=== PATIENT | male | born 1985 | race American Indian/Alaskan Native ===

== ENCOUNTER 2017-09-29 15:52 | Inpatient (IN) | payer OTHER ==
--- NOTE | 2017-09-29 16:48 | C.PDOC ---
History Of Present Illness 31 year old male, whose PMHx includes ESRD (on dialysis Wednesday, and Wednesday), presents to the ED for evaluation of generalized fatigue, dry cough, mild shortness of breath and subjective fever (undocumented) which began yesterday. Patient also reports experiencing mild chest discomfort this morning and states he still feels like he has a fever. Patient states his last dialysis session was this past Wednesday. Patient notes he has been eating/drinking normally and producing small amounts of urine. He denies chest pain, abdominal pain, and has no further medical complaints at this time. Patient reports he had history of transient hypertension a few years ago, but currently does not have hypertension or diabetes. Patient is unaware of why his kidneys failed. Additional history obtained from Dr Ashley Mesa, patient is new to their service. He was recently incarcerated and is not always compliant with his dialysis. Time Seen by Provider: 09/29/17 16:25 Chief Complaint (Nursing): Chest Pain History Per: Patient History/Exam Limitations: no limitations Onset/Duration Of Symptoms: Hrs Current Symptoms Are (Timing): Still Present Quality: "Pain" Additional History Per: Patient Past Medical History Reviewed: Historical Data, Nursing Documentation, Vital Signs Vital Signs: Last Vital Signs Temp 98.7 F 09/29/17 15:54 Pulse 81 09/29/17 15:54 Resp 12 09/29/17 16:14 BP 127/75 09/29/17 15:54 Pulse Ox 95 09/29/17 17:11 - Medical History PMH: Asthma, End Stage Renal Disease, Chronic Kidney Disease Surgical History: No Surg Hx Family History: States: Unknown Family Hx - Social History Hx Alcohol Use: No Hx Substance Use: No - Immunization History Hx Tetanus Toxoid Vaccination: No Hx Influenza Vaccination: No Hx Pneumococcal Vaccination: No Review Of Systems Constitutional: Positive for: Fever, Other (generalized fatigue ) Cardiovascular: Positive for: Chest Pain Respiratory: Positive for: Cough, Shortness of Breath. Negative for: Sputum Gastrointestinal: Negative for: Abdominal Pain Physical Exam - Physical Exam Appears: Non-toxic, No Acute Distress Skin: Normal Color, Warm, Dry Head: Atraumatic, Normacephalic Eye(s): bilateral: Normal Inspection Oral Mucosa: Moist Neck: Supple Chest: Symmetrical, No Deformity, No Tenderness Cardiovascular: Rhythm Regular, No Murmur Respiratory: Normal Breath Sounds, No Rales, No Rhonchi, No Wheezing Gastrointestinal/Abdominal: Soft, No Tenderness, No Guarding, No Rebound Extremity: Normal ROM, Capillary Refill (less than 2 seconds ) Neurological/Psych: Oriented x3, Normal Speech, Normal Cognition ED Course And Treatment - Laboratory Results Result Diagrams: 09/29/17 17:07 09/29/17 17:07 Lab Interpretation: Abnormal (Hgb 7.8, Hct 23.9, BUN 107, Cr 18.7) ECG: Interpreted By Me ECG Rhythm: Sinus Rhythm (with LVH) O2 Sat by Pulse Oximetry: 95 (on RA) Pulse Ox Interpretation: Normal - Radiology CXR: Interpreted by Me CXR Interpretation: Yes: Heart Size (enlarged) Progress Note: Bloodwork, urinalysis, CXR, EKG ordered and reviewed. Reevaluation Time: 18:45 Reassessment Condition: Unchanged - Physician Consult Information Time Consulting Physician Contacted: 18:45 Outcome Of Conversation: Discussed with Dr Mesa and Dr West. Patient to be admitted for fluid overload with renal failure. Dialysis will be ordered by DR Mesa. Disposition - Disposition Disposition: HOSPITALIZED Disposition Time: 18:45 Condition: FAIR - POA Present On Arrival: None - Clinical Impression Clinical Impression: ESRD (end stage renal disease) on dialysis, Cardiomegaly - Scribe Statement The provider has reviewed the documentation as recorded by the Scribe (Fiona Huber) Provider Attestation: All medical record entries made by the Scribe were at my direction and personally dictated by me. I have reviewed the chart and agree that the record accurately reflects my personal performance of the history, physical exam, medical decision making, and the department course for this patient. I have also personally directed, reviewed, and agree with the discharge instructions and disposition.
[2017-09-29 17:15] LABS: BASO % 0.3 % (0.0-2.0); EOS # 0.2 K/uL (0.0-0.7); EOS % 3.7 % (0.0-4.0); HEMOGLOBIN 7.8 g/dL (12.0-18.0); LYMPH # 0.7 K/uL (1.0-4.3); LYMPH % 12.6 % (20.0-40.0); MEAN CELL VOLUME 90.2 fL (80.0-94.0); MEAN CORPUSCULAR HEMOGLOBIN 29.6 pg (27.0-31.0); MEAN CORPUSCULAR HGB CONC 32.8 g/dL (33.0-37.0); MEAN PLATELET VOLUME 8.1 fL (7.2-11.7); MONO # 0.3 K/uL (0.0-0.8); MONO % 5.9 % (0.0-10.0); NEUT # 4.1 K/uL (1.8-7.0); NEUT % 77.5 % (50.0-75.0); RBC 2.65 Mil/uL (4.40-5.90); RED CELL DISTRIBUTION WIDTH 13.7 % (11.5-14.5); WHITE BLOOD COUNT 5.4 K/uL (4.8-10.8)
[2017-09-29 17:34] LABS: ALB/GLOB RATIO 1.2 (1.0-2.1); ALBUMIN 3.4 g/dL (3.5-5.0); ALT/SGPT 10 U/L (21-72); AST/SGOT 14 U/L (17-59); CALCIUM 8.1 mg/dl (8.6-10.4)
[2017-09-29 18:00] LABS: GFR AFRICAN-AMERICAN 4; GFR NON-AFRICAN AMERICAN 3
[2017-09-29 21:17] LABS: BLOOD UREA NITROGEN 107 mg/dL (9-20)
[2017-09-29] MEDS ORDERED: Pneumococcal 23-Valent Vaccine IM ONE (22:00)
--- NOTE | 2017-09-30 07:37 | CP.PCM.PN ---
Subjective - Date & Time of Evaluation Date of Evaluation: 09/30/17 Time of Evaluation: 07:30 - Subjective Subjective: PGY-[address] West's Service: Pt seen and examined at bedside. Nursing reports no acute events overnight. Patient states he missed dialysis because "he was busy." Denies chest pain, SOB , or palpitations this AM. 31 year old male, whose PMHx includes ESRD (Wednesday, and Wednesday), presents to the ED for evaluation of generalized fatigue, dry cough, mild shortness of breath and subjective fever which started the day yesterday. Patient also reports experiencing mild chest discomfort this morning and states he still feels like he has a fever. Patient states his last dialysis session was this past Wednesday. Patient notes he has been eating/drinking normally and producing small amounts of urine. He denies chest pain, abdominal pain, and has no further medical complaints at this time. Patient reports he had history of transient hypertension a few years ago, but currently does not have hypertension or diabetes. Has had dialysis for past eight years. He was recently incarcerated and is not always compliant with his dialysis. Objective - Vital Signs/Intake and Output Vital Signs (last 24 hours): Temp Pulse Resp BP Pulse Ox 98.5 F 71 20 135/73 99 09/30/17 00:00 09/30/17 00:00 09/30/17 00:00 09/30/17 00:00 09/30/17 00:00 Intake and Output: 09/30/17 09/30/17 06:59 18:59 Output Total 0 Balance 0 - Medications Medications: Current Medications Calcium Acetate (Phoslo) 2,668 mg PO QID [facility] Cinacalcet (Sensipar) 60 mg PO DAILY [facility] Heparin Sodium (Porcine) (Heparin) 5,000 units SC Q12 [facility] Vitamin B Complex/Vit C/Folic Acid (Nephro-Xenia) 1 tab PO 0800 [facility] - Labs Labs: 09/29/17 17:07 09/29/17 17:07 - Constitutional Appears: Non-toxic, No Acute Distress - Head Exam Head Exam: ATRAUMATIC, NORMAL INSPECTION - Eye Exam Eye Exam: EOMI. absent: Scleral icterus Pupil Exam: PERRL - ENT Exam ENT Exam: Mucous Membranes Dry - Respiratory Exam Respiratory Exam: Clear to Ausculation Bilateral, NORMAL BREATHING PATTERN. absent: Rales, Rhonchi, Wheezes - Cardiovascular Exam Cardiovascular Exam: REGULAR RHYTHM, +S1, +S2 - GI/Abdominal Exam GI & Abdominal Exam: Soft, Normal Bowel Sounds. absent: Tenderness - Extremities Exam Extremities Exam: Pedal Edema (trace) - Back Exam Back Exam: absent: CVA tenderness (L), CVA tenderness (R) - Neurological Exam Neurological Exam: Alert, Awake, Oriented x3 - Psychiatric Exam Psychiatric exam: Normal Affect, Normal Mood - Skin Skin Exam: Normal Color, Warm Assessment and Plan - Assessment and Plan (Free Text) Plan: ESRD (T//WED) Admit to med/surg Dr Bell - nephro specification consultant - HD today CXR (09/29/17): Cardiomegaly. Mild pulm venous congestion. Cincalet 60mg PO daily Phoslo 2668 PO TIDCC Nephro-xenia 1 tab Daily HTN Admits being told he has high BP in the past but denies home meds EKG (09/30/17): NSR, LVH, No acute ST/T wave changes Monitor Chest pain associated with cough Afebrile, No WBC CXR (09/29/17): Cardiomegaly. Mild pulm venous congestion. Trop negative x 1 EKG: no acute changes Thrombocytopenia Plt 109 Pt missed dialysis, perhaps uremia Monitor Anemia of Chronic disease Hgb 7.8, HCT 23.9 Procrit 10k unit IV TTS - will monitor AM labs; transfusion if < 8 Hx of neurogenic bladder Now anuric Prophylaxis Heparin 5000u Q12H SCDs GI ppx not indicated Humble Duran PGY-2 All medical management per Dr. West
--- NOTE | 2017-09-30 08:20 | RAD ---
HISTORY: COMPARISON: No prior. TECHNIQUE: Chest PA and lateral FINDINGS: LINES AND TUBES: None. LUNG AND PLEURA: The lungs are well lungs are well inflated. There is moderate pulmonary venous congestion HEART AND MEDIASTINUM: There is mild cardiomegaly. The hilar and mediastinal contours are within normal limits. SKELETAL STRUCTURES: The bony structures are within normal limits for the patient's age. VISUALIZED UPPER ABDOMEN: Normal. OTHER FINDINGS: None. IMPRESSION: Moderate pulmonary venous congestion and mild cardiomegaly. No active pulmonary disease.
[2017-09-30] MEDS: Multivitamin Vitamin B Complex (Nephro-Vite) Tab PO SCH (08:22)
--- NOTE | 2017-09-30 14:43 | CP.PCM.CON ---
History of Present Illness - History of Present Illness History of Present Illness: Initial Nephrology Consultation: Assessment: Stable Pulmonary congestion and fluid overload End stage renal disease (N18.6) dependence on hemodialysis (Z99.2) (TTS) via AVF Anemia (D64.9), Hyperphosphatemia (E83.39), Secondary Hyperparathyroidism (E21.1 ), HTN (I12.0) hx of VATER syndrome Plan: Will plan for HD today as ordered. Continue with Nephrovite 1 tab/day. PRBC as needed for anemia. On LATASHA as epogen with HD, last Hb 7.8 Continue with phos binders home dose, check phos level Continue with sensipar BP controlled without meds as ordered. Glycemic control, Dialysis consistent diet Further work up/management as per primary team Dose meds/antibiotics (if needed) for ESRD status. Avoid fleets enema/magnesium based laxatives. Thanks for allowing me to participate in care of your patient. Will follow patient with you. Please call if any Qs Dr Son Carrillo Office: [phone] Chief Complaint;excess fluid HPI: Pt is a 31 M with hx of ESRD on hemodialysis (TTS) via AVF, last dialysis , chronic anemia, hyperphosphatemia, secondary hyperparathyroidism, VATER syndrome presented with complaints of chest pain, cough and congestion. renal consult for ESRD management he feels excess fluid and c/o leg swelling. he is anuric now. reports mild SOB. 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 reports chronic neurogenic bladder which he was managing with self catheterization. he had CKD and started hemodialysis 6 years ago. nowadays anuric ROS: Cardiovascular: No chest pain. Pulmonary: c/o shortness of breath Gastrointestinal: denies abdominal pain No nausea. No vomiting. Genitourinary: anuric All other negative except as mentioned in HPI Physical Examination: General Appearance: Comfortable, in no acute respiratory distress, co-operative . Vitals reviewed and noted as below Head; Atraumatic, normocephalic ENT: no ulcers no thrush. Tongue is midline. Oropharynx: no rash or ulcers. facial puffiness notes EYES: Pupils are equal, round and reactive to light accommodation. Eye muscles and extraocular movement intact. Sclera is anicteric. Neck; supple no lymphadenopathy, no thyromegaly or bruit Lungs: Normal respiratory rate/effort. Breath sounds bilateral equal and clear Heart: Normal rate. s1s2 normal. No rub or gallop. Extremities: trace edema. No varicose veins Neurological: Patient is alert, awake and oriented to person, place and time. No focal deficit. Strength bilateral appropriate and equal Skin: Warm and dry. Normal turgor. No rash. Palpitation: Normal elasticity for age Abdomen: Abdomen is soft. Bowel sounds +. There is no abdominal tenderness, no guarding/rigidity or organomegaly. has RLQ colostomy Psych: normal insight and normal affect/mood MSK: no joint tenderness or swelling. Digits and nails normal, no deformity : kidney or bladder not palpable Access: left AVF Labs/imaging reviewed. Past medical history, past surgical history, family history, social history, allergy reviewed and noted as below Family Hx: no hx of CKD. Non contributory Past Patient History - Past Medical History & Family History Past Medical History?: Yes - Past Social History Smoking Status: Heavy Smoker > 10 Cigarettes Daily - CARDIAC Hx Hypertension: Yes - PULMONARY Hx Asthma: Yes - NEUROLOGICAL Other/Comment: neuro genic bladder - RENAL Hx Chronic Kidney Disease: Yes Hx Dialysis: Yes Date of Last Dialysis Treatment: 09/25/17 - MUSCULOSKELETAL/RHEUMATOLOGICAL Hx Falls: No - PSYCHIATRIC Hx Substance Use: No Meds Allergies/Adverse Reactions: Allergies Allergy/AdvReac Type Severity Reaction Status Date / Time latex Allergy Verified 09/29/17 16:02 monoxidill Allergy Uncoded 09/29/17 16:02 - Medications Medications: Current Medications Calcium Acetate (Phoslo) 2,668 mg PO TIDCC [facility] Cinacalcet (Sensipar) 60 mg PO DAILY [facility] Last Admin: 09/30/17 09:18 Dose: 60 mg Epoetin Darius (Procrit) 10,000 unit IV TTS [facility] Heparin Sodium (Porcine) (Heparin) 5,000 units SC Q12 [facility] Last Admin: 09/30/17 09:18 Dose: Not Given Heparin Sodium (Porcine) (Heparin) 2,000 units IVP TTS [facility] Vitamin B Complex/Vit C/Folic Acid (Nephro-Radha) 1 tab PO 0800 [facility] Last Admin: 09/30/17 08:22 Dose: 1 tab Results - Vital Signs Recent Vital Signs: Last Vital Signs Temp 98.4 F 09/30/17 07:55 Pulse 79 09/30/17 07:55 Resp 20 09/30/17 07:55 BP 140/83 09/30/17 07:55 Pulse Ox 95 09/30/17 07:55 - Labs Result Diagrams: 09/29/17 17:07 09/29/17 17:07 Labs: Laboratory Results - last 24 hr 09/29/17 09/29/17 17:07 17:07 WBC 5.4 RBC 2.65 L Hgb 7.8 L Hct 23.9 L MCV 90.2 MCH 29.6 MCHC 32.8 L RDW 13.7 Plt Count 109 L MPV 8.1 Neut % (Auto) 77.5 H Lymph % (Auto) 12.6 L [place] % (Auto) 5.9 Eos % (Auto) 3.7 Baso % (Auto) 0.3 Neut # (Auto) 4.1 Lymph # (Auto) 0.7 L [place] # (Auto) 0.3 Eos # (Auto) 0.2 Baso # (Auto) 0.0 Differential Comment Sodium 145 Potassium 5.2 Chloride 98 Carbon Dioxide 27 Anion Gap 25 H BUN 107 H* Creatinine 18.7 H* Est GFR ( Amer) 4 Est GFR (Non-Af Amer) 3 Random Glucose 110 Calcium 8.1 L Total Bilirubin 0.6 AST 14 L ALT 10 L Alkaline Phosphatase 233 H Troponin I < 0.0120 Total Protein 6.3 Albumin 3.4 L Globulin 2.9 Albumin/Globulin Ratio 1.2
[2017-09-30] MEDS: Epoetin Alfa 10,000 unit/ml Dialysis IV SCH (17:32)
[2017-09-30] MEDS ORDERED: oxyCODONE 5 mg Immediate Release Tab PO ONE (20:30)
--- NOTE | 2017-10-01 06:30 | HP ---
HISTORY OF PRESENT ILLNESS: Mr. Montemayor 31 year-old was admitted to the hospital with chief complaints of weakness, fatigue, tiredness. History of shortness of breath. The patient renal failure, . The patient came to the ER, was advised admission. PHYSICAL EXAMINATION: GENERAL: The patient is awake, alert, and oriented. VITAL SIGNS: Temperature 98, pulse 90. HEENT: Within normal limits. NECK: Supple. CHEST: Symmetrical. HEART: Regular. ABDOMEN: Soft. EXTREMITIES: No edema. IMPRESSION: The patient suffers from , bed rest, supportive care. Chitra West MD
[2017-10-01 06:37] LABS: ALB/GLOB RATIO 1.1 (1.0-2.1); ALBUMIN 3.3 g/dL (3.5-5.0); CALCIUM 8.1 mg/dl (8.6-10.4)
[2017-10-01] MEDS: Multivitamin Vitamin B Complex (Nephro-Vite) Tab PO SCH (08:43)
--- NOTE | 2017-10-01 09:15 | CP.PCM.PN ---
Subjective - Date & Time of Evaluation Date of Evaluation: 10/01/17 Time of Evaluation: 10:52 - Subjective Subjective: PGY 2 Medicine Progress Note- Dr. West's service Patient seen and examined. Patient admits to feeling short of breath at this time. He had hemodialysis today. He denies chest pain, nausea or vomiting at this time. Objective - Vital Signs/Intake and Output Vital Signs (last 24 hours): Temp Pulse Resp BP Pulse Ox 98.8 F 86 20 140/85 95 10/01/17 07:34 10/01/17 07:34 10/01/17 07:34 10/01/17 07:34 10/01/17 07:34 Intake and Output: 10/01/17 10/01/17 06:59 18:59 Intake Total 200 Balance 200 - Medications Medications: Current Medications Calcium Acetate (Phoslo) 2,668 mg PO TIDCC [facility] Last Admin: 10/01/17 08:44 Dose: 2,668 mg Cinacalcet (Sensipar) 60 mg PO DAILY [facility] Last Admin: 09/30/17 09:18 Dose: 60 mg Epoetin Darius (Procrit) 10,000 unit IV TTS [facility] Last Admin: 09/30/17 17:32 Dose: 10,000 unit Heparin Sodium (Porcine) (Heparin) 5,000 units SC Q12 [facility] Last Admin: 09/30/17 21:19 Dose: Not Given Heparin Sodium (Porcine) (Heparin) 2,000 units IVP TTS [facility] Last Admin: 09/30/17 17:32 Dose: Not Given Vitamin B Complex/Vit C/Folic Acid (Nephro-Xenia) 1 tab PO 0800 [facility] Last Admin: 10/01/17 08:43 Dose: 1 tab - Labs Labs: 09/29/17 17:07 10/01/17 06:15 - Constitutional Appears: Non-toxic, No Acute Distress - Eye Exam Eye Exam: EOMI, Normal appearance, PERRL Pupil Exam: NORMAL ACCOMODATION - ENT Exam ENT Exam: Mucous Membranes Moist - Respiratory Exam Respiratory Exam: NORMAL BREATHING PATTERN - Cardiovascular Exam Cardiovascular Exam: +S1, +S2 - Extremities Exam Extremities Exam: Full ROM - Neurological Exam Neurological Exam: Alert, Awake, Oriented x3 - Psychiatric Exam Psychiatric exam: Normal Affect, Normal Mood - Skin Skin Exam: Normal Color, Warm Assessment and Plan - Assessment and Plan (Free Text) Assessment: ESRD (T//WED) Dr Bell - nephro home sales consultant- F/U recommendations FEels short of breath today- would benefit from additional HD. Then resume normal schedule CXR (09/29/17): Cardiomegaly. Mild pulm venous congestion. Cincalcet 60mg PO daily Phoslo 2668 PO TIDCC Nephro-xenia 1 tab Daily HTN Admits being told he has high BP in the past but denies home meds EKG (09/30/17): NSR, LVH, No acute ST/T wave changes Monitor Chest pain associated with cough Afebrile, No WBC CXR (09/29/17): Cardiomegaly. Mild pulm venous congestion. Trop negative x 1 EKG: no acute changes Thrombocytopenia Monitor Anemia of Chronic disease Likely due to ESRD Procrit 10k unit IV TTS Monitor AM labs; transfuse PRBC if Hgb is not within normal parameters Hx of VATER syndrome Patient with chronic neurogenic bladder Patient self- catheterizes at home Prophylaxis Heparin 5000u Q12H SCDs GI ppx not indicated Dispo: DC following HD session Wednesday. Discussed with attending. Management and planning per Dr. West.
--- NOTE | 2017-10-01 12:14 | CP.PCM.PN ---
Subjective - Date & Time of Evaluation Date of Evaluation: 10/01/17 Time of Evaluation: 12:11 - Subjective Subjective: Nephrology Consultation Note: Assessment: Stable Pulmonary congestion and fluid overload End stage renal disease (N18.6) dependence on hemodialysis (Z99.2) (TTS) via AVF Anemia (D64.9), Hyperphosphatemia (E83.39), Secondary Hyperparathyroidism (E21.1 ), HTN (I12.0) hx of VATER syndrome Plan: Will plan for HD today extra session and tomorrow TTS as ordered. Continue with Nephrovite 1 tab/day. PRBC as needed for anemia. On LATASHA as epogen with HD, last Hb 7.8 Continue with phos binders home dose, last phos level 5.1 Continue with sensipar BP controlled without meds as ordered. Glycemic control, Dialysis consistent diet Further work up/management as per primary team Dose meds/antibiotics (if needed) for ESRD status. Avoid fleets enema/magnesium based laxatives. Thanks for allowing me to participate in care of your patient. Will follow patient with you. Please call if any Qs. d/w team Dr Son Carrillo Office: [phone] Chief Complaint;excess fluid HPI: Pt is a 31 M with hx of ESRD on hemodialysis (TTS) via AVF, last dialysis , chronic anemia, hyperphosphatemia, secondary hyperparathyroidism, VATER syndrome presented with complaints of chest pain, cough and congestion. renal consult for ESRD management he feels excess fluid and c/o leg swelling. he is anuric now. reports mild SOB. 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 reports chronic neurogenic bladder which he was managing with self catheterization. he had CKD and started hemodialysis 6 years ago. nowadays anuric ROS: Cardiovascular: No chest pain. Pulmonary: c/o shortness of breath Gastrointestinal: denies abdominal pain No nausea. No vomiting. Genitourinary: anuric All other negative except as mentioned in HPI Physical Examination: General Appearance: Comfortable, in no acute respiratory distress, co-operative . Vitals reviewed and noted as below Head; Atraumatic, normocephalic ENT: no ulcers no thrush. Tongue is midline. Oropharynx: no rash or ulcers. facial puffiness notes EYES: Pupils are equal, round and reactive to light accommodation. Eye muscles and extraocular movement intact. Sclera is anicteric. Neck; supple no lymphadenopathy, no thyromegaly or bruit Lungs: Normal respiratory rate/effort. Breath sounds bilateral equal and clear Heart: Normal rate. s1s2 normal. No rub or gallop. Extremities: no edema. No varicose veins Neurological: Patient is alert, awake and oriented to person, place and time. No focal deficit. Strength bilateral appropriate and equal Skin: Warm and dry. Normal turgor. No rash. Palpitation: Normal elasticity for age Abdomen: Abdomen is soft. Bowel sounds +. There is no abdominal tenderness, no guarding/rigidity or organomegaly. has RLQ colostomy Psych: normal insight and normal affect/mood MSK: no joint tenderness or swelling. Digits and nails normal, no deformity : kidney or bladder not palpable Access: left AVF Labs/imaging reviewed. Past medical history, past surgical history, family history, social history, allergy reviewed and noted as below Family Hx: no hx of CKD. Non contributory Objective - Vital Signs/Intake and Output Vital Signs (last 24 hours): Temp Pulse Resp BP Pulse Ox 98.8 F 86 20 140/85 95 10/01/17 07:34 10/01/17 07:34 10/01/17 07:34 10/01/17 07:34 10/01/17 07:34 Intake and Output: 10/01/17 10/01/17 06:59 18:59 Intake Total 200 Balance 200 - Medications Medications: Current Medications Calcium Acetate (Phoslo) 2,668 mg PO TIDCC [facility] Last Admin: 10/01/17 12:09 Dose: 2,668 mg Cinacalcet (Sensipar) 60 mg PO DAILY [facility] Last Admin: 10/01/17 10:32 Dose: 60 mg Epoetin Darius (Procrit) 10,000 unit IV TTS [facility] Last Admin: 09/30/17 17:32 Dose: 10,000 unit Heparin Sodium (Porcine) (Heparin) 5,000 units SC Q12 [facility] Last Admin: 10/01/17 10:37 Dose: Not Given Heparin Sodium (Porcine) (Heparin) 2,000 units IVP TTS [facility] Last Admin: 09/30/17 17:32 Dose: Not Given Vitamin B Complex/Vit C/Folic Acid (Nephro-Radha) 1 tab PO 0800 [facility] Last Admin: 10/01/17 08:43 Dose: 1 tab - Labs Labs: 09/29/17 17:07 10/01/17 06:15
--- NOTE | 2017-10-01 13:21 | CARD ---
APPROVED REPORT EKG Measurement Heart [id number] <Conclusion> Normal sinus rhythm Minimal voltage criteria for LVH, may be normal variant Prolonged QT Abnormal ECG
[2017-10-01 15:14] LABS: BASO % 0.8 % (0.0-2.0); EOS # 0.1 K/uL (0.0-0.7); EOS % 2.7 % (0.0-4.0); HEMOGLOBIN 7.9 g/dL (12.0-18.0); LYMPH # 0.4 K/uL (1.0-4.3); LYMPH % 13.2 % (20.0-40.0); MEAN CELL VOLUME 88.9 fL (80.0-94.0); MEAN CORPUSCULAR HEMOGLOBIN 29.9 pg (27.0-31.0); MEAN CORPUSCULAR HGB CONC 33.7 g/dL (33.0-37.0); MEAN PLATELET VOLUME 8.4 fL (7.2-11.7); MONO # 0.2 K/uL (0.0-0.8); MONO % 6.3 % (0.0-10.0); NEUT # 2.5 K/uL (1.8-7.0); RBC 2.65 Mil/uL (4.40-5.90); RED CELL DISTRIBUTION WIDTH 13.1 % (11.5-14.5); WHITE BLOOD COUNT 3.3 K/uL (4.8-10.8)
[2017-10-02] MEDS: Multivitamin Vitamin B Complex (Nephro-Vite) Tab PO SCH (08:43)
[2017-10-02 15:24] VITALS: RESP 18; O2SAT 97
[2017-10-02] MEDS: Epoetin Alfa 10,000 unit/ml Dialysis IV SCH (17:14)
[2017-10-02 18:48] VITALS: BP 136/90; PULSE 71; TEMP 98.2
--- NOTE | 2017-10-02 22:38 | CP.PCM.PN ---
Subjective - Date & Time of Evaluation Date of Evaluation: 10/02/17 Time of Evaluation: 14:00 - Subjective Subjective: renal follow up note Assessment: Stable Pulmonary congestion and fluid overload End stage renal disease (N18.6) dependence on hemodialysis (Z99.2) (TTS) via AVF Anemia (D64.9), Hyperphosphatemia (E83.39), Secondary Hyperparathyroidism (E21.1 ), HTN (I12.0) hx of VATER syndrome Plan: Will plan for HD today TTS as ordered. Continue with Nephrovite 1 tab/day. PRBC as needed for anemia. On LATASHA as epogen with HD Continue with phos binders and sensipar at home dose BP controlled Glycemic control, Dialysis consistent diet Further work up/management as per primary team Dose meds/antibiotics (if needed) for ESRD status. Physical Examination: General Appearance: Comfortable, in no acute respiratory distress, co-operative . Vitals reviewed and noted as below Head; Atraumatic, normocephalic ENT: no ulcers Oropharynx: no rash or ulcers. facial puffiness notes EYES: Eye muscles and extraocular movement intact. Sclera is anicteric. Neck; supple no lymphadenopathy, no thyromegaly or bruit Lungs: Normal respiratory rate/effort. Breath sounds bilateral equal and clear Heart: Normal rate. s1s2 normal. No rub or gallop. Extremities: no edema. No varicose veins Neurological: Patient is alert, awake and oriented to person, place and time. No focal deficit. Strength bilateral appropriate and equal Skin: Warm and dry. Normal turgor. No rash. Palpitation: Normal elasticity for age Abdomen: Abdomen is soft. Bowel sounds +. There is no abdominal tenderness, no guarding/rigidity or organomegaly. has RLQ colostomy Psych: normal insight and normal affect/mood MSK: no joint tenderness or swelling. Digits and nails normal, no deformity : kidney or bladder not palpable Objective - Vital Signs/Intake and Output Vital Signs (last 24 hours): Temp Pulse Resp BP Pulse Ox 98.2 F 71 18 136/90 97 10/02/17 18:30 10/02/17 18:30 10/02/17 18:30 10/02/17 18:30 10/02/17 14:55 Intake and Output: 10/02/17 10/03/17 18:59 06:59 Intake Total 720 Balance 720 - Labs Labs: 10/01/17 15:07 10/01/17 06:15
== END 2017-10-02 20:00 | disposition home or self-care (01) | DRG 296 ==
LOC: C.ER 15:52 → C.9E 18:46 → C.3T 19:24
PROVIDERS: ADMIT Internal Medicine Pulmonary Disease; ATTEND Internal Medicine Pulmonary Disease
PROC: 5A1D70Z Performance of Urinary Filtration, Intermittent, Less than 6 Hours Per Day (ICD-10-PCS; principal; 2017-09-30)
PROC: 5A1D70Z Performance of Urinary Filtration, Intermittent, Less than 6 Hours Per Day (ICD-10-PCS; 2017-10-01)
PROC: 5A1D70Z Performance of Urinary Filtration, Intermittent, Less than 6 Hours Per Day (ICD-10-PCS; 2017-10-02)
DX: E87.70 Fluid overload, unspecified (principal); I13.11 Hypertensive heart and chronic kidney disease without heart failure, with stage 5 chronic kidney disease, or end stage renal disease; N18.6 End stage renal disease; D69.6 Thrombocytopenia, unspecified; I51.7 Cardiomegaly; E83.39 Other disorders of phosphorus metabolism; D63.8 Anemia in other chronic diseases classified elsewhere; N31.9 Neuromuscular dysfunction of bladder, unspecified; J45.909 Unspecified asthma, uncomplicated; N25.81 Secondary hyperparathyroidism of renal origin; R50.9 Fever, unspecified; R05 Cough; F17.210 Nicotine dependence, cigarettes, uncomplicated; Z91.15 Patient's noncompliance with renal dialysis; Z99.2 Dependence on renal dialysis; Z93.3 Colostomy status

== ENCOUNTER 2018-08-11 15:42 | Observation (INO) | payer OTHER ==
[2018-08-11 15:58] VITALS: BMI 19.1
[2018-08-11] MEDS ORDERED: Aspirin 325 mg EC Tablets PO STA (16:03)
[2018-08-11 16:42] LABS: BASO # 0.1 K/uL (0.0-0.2); EOS # 0.2 K/uL (0.0-0.7); EOS % 1.7 % (0.0-4.0); HEMOGLOBIN 11.8 g/dL (12.0-18.0); LYMPH # 0.7 K/uL (1.0-4.3); LYMPH % 7.8 % (20.0-40.0); MEAN CORPUSCULAR HEMOGLOBIN 28.9 pg (27.0-31.0); MEAN CORPUSCULAR HGB CONC 32.1 g/dL (33.0-37.0); MEAN PLATELET VOLUME 7.4 fL (7.2-11.7); MONO # 0.5 K/uL (0.0-0.8); NEUT # 8.1 K/uL (1.8-7.0); NEUT % 84.5 % (50.0-75.0); PLATELET COUNT 158 K/uL (130-400); RBC 4.09 Mil/uL (4.40-5.90); RED CELL DISTRIBUTION WIDTH 15.9 % (11.5-14.5); WHITE BLOOD COUNT 9.6 K/uL (4.8-10.8)
--- NOTE | 2018-08-11 16:42 | RAD ---
HISTORY: chest pain COMPARISON: Chest x-ray performed 09/29/17 TECHNIQUE: Chest, one view. FINDINGS: Examination limited by habitus and patient obliquity. LUNGS: Patchy left lower lobe opacities consistent with pneumonia. Linear atelectasis, right lung base. PLEURA: No significant pleural effusion identified. No definite pneumothorax . CARDIOVASCULAR: Cardiomegaly. Ectatic aorta likely exaggerated by patient obliquity. OSSEOUS STRUCTURES: No acute osseous abnormality identified. VISUALIZED UPPER ABDOMEN: Unremarkable. OTHER FINDINGS: None. IMPRESSION: Patchy left lower lobe pneumonia. Linear atelectasis, right lung base. Correlate clinically. Cardiomegaly. Ectatic aorta, likely exaggerated by patient obliquity.
[2018-08-11 16:54] LABS: PROTHROMBIN TIME 11.2 SECONDS (9.7-12.2)
[2018-08-11 17:10] LABS: TROPONIN I 0.03 ng/mL (0.00-0.120)
[2018-08-11 17:19] LABS: ALB/GLOB RATIO 1.6 (1.0-2.1); ALBUMIN 4.4 g/dL (3.5-5.0)
--- NOTE | 2018-08-11 17:40 | C.PDOC ---
Time Seen by Provider: 08/11/18 15:53 Chief Complaint (Nursing): Chest Pain Past Medical History Vital Signs: Last Vital Signs Temp Pulse 104 H 08/11/18 17:11 Resp 20 08/11/18 17:11 BP 174/112 H 08/11/18 17:11 Pulse Ox 94 L 08/11/18 17:11 - Medical History PMH: Asthma, HTN, End Stage Renal Disease, Chronic Kidney Disease - [facility] (09/29/17) Family History: States: Unknown Family Hx - Social History Hx Alcohol Use: No Hx Substance Use: No - Immunization History Hx Tetanus Toxoid Vaccination: Yes Hx Influenza Vaccination: Yes Hx Pneumococcal Vaccination: Yes ED Course And Treatment - Laboratory Results Result Diagrams: 08/11/18 16:39 08/11/18 16:39 Lab Results: PT 11.2 SECONDS (9.7-12.2) 08/11/18 16:39 INR 1.0 08/11/18 16:39 APTT 35 SECONDS (21-34) H 08/11/18 16:39 Troponin I 0.0300 ng/mL (0.00-0.120) 08/11/18 16:39 Total Bilirubin 1.0 mg/dL (0.2-1.3) 08/11/18 16:39 AST 130 U/L (17-59) H D 08/11/18 16:39 ALT 53 U/L (21-72) 08/11/18 16:39 Alkaline Phosphatase 120 U/L (38-126) 08/11/18 16:39 Total Protein 7.2 g/dL (6.3-8.3) 08/11/18 16:39 Albumin 4.4 g/dL (3.5-5.0) 08/11/18 16:39 Globulin 2.8 gm/dL (2.2-3.9) 08/11/18 16:39 Albumin/Globulin Ratio 1.6 (1.0-2.1) 08/11/18 16:39 O2 Sat by Pulse Oximetry: 94 Disposition Discussed With : Tatianna Brunner Counseled Patient/Family Regarding: Studies Performed, Diagnosis - Disposition Disposition: HOSPITALIZED Disposition Time: 17:40 Condition: FAIR Forms: [facility] (Kyrgyz) - Clinical Impression Clinical Impression: Chest pain, ESRD (end stage renal disease)
--- NOTE | 2018-08-11 17:42 | C.PDOC ---
History Of Present Illness 32 y/o male,w/PMhx of ESRD, brought to ER by ambulance for evaluation of chest pain and shortness of breath which began in the morning today. Patient states that the pain is located in the center of the chest and the pain is non-radi ating. Patient reports that he is due for dialysis today. Time Seen by Provider: 08/11/18 15:53 Chief Complaint (Nursing): Chest Pain History Per: Patient History/Exam Limitations: no limitations Onset/Duration Of Symptoms: Hrs Current Symptoms Are (Timing): Still Present Severity: Moderate Past Medical History Reviewed: Historical Data, Nursing Documentation, Vital Signs Vital Signs: Last Vital Signs Temp Pulse 104 H 08/11/18 17:11 Resp 20 08/11/18 17:11 BP 174/112 H 08/11/18 17:11 Pulse Ox 94 L 08/11/18 17:11 - Medical History PMH: Asthma, HTN, End Stage Renal Disease, Chronic Kidney Disease Surgical History: No Surg Hx - [facility] (09/29/17) Family History: States: Unknown Family Hx - Social History Hx Alcohol Use: No Hx Substance Use: No - Immunization History Hx Tetanus Toxoid Vaccination: Yes Hx Influenza Vaccination: Yes Hx Pneumococcal Vaccination: Yes Review Of Systems Except As Marked, All Systems Reviewed And Found Negative. Constitutional: Negative for: Fever, Chills Cardiovascular: Positive for: Chest Pain Respiratory: Positive for: Shortness of Breath Gastrointestinal: Negative for: Nausea, Vomiting Physical Exam - Physical Exam Appears: Non-toxic, No Acute Distress Skin: Normal Color, Warm, Dry Head: Atraumatic, Normacephalic Eye(s): bilateral: Normal Inspection Nose: Normal Oral Mucosa: Moist Neck: Supple Chest: Symmetrical Cardiovascular: Rhythm Regular, Murmur (2/6 systolic ejection murmur) Respiratory: Normal Breath Sounds, No Rales, No Rhonchi, No Wheezing Gastrointestinal/Abdominal: Normal Exam, Soft, No Tenderness, No Guarding, No Rebound Extremity: Normal ROM, Other (AV fistula with thrill to left arm) Neurological/Psych: Oriented x3, Normal Speech ED Course And Treatment - Laboratory Results Result Diagrams: 08/11/18 16:39 08/11/18 16:39 Lab Results: PT 11.2 SECONDS (9.7-12.2) 08/11/18 16:39 INR 1.0 08/11/18 16:39 APTT 35 SECONDS (21-34) H 08/11/18 16:39 Troponin I 0.0300 ng/mL (0.00-0.120) 08/11/18 16:39 Total Bilirubin 1.0 mg/dL (0.2-1.3) 08/11/18 16:39 AST 130 U/L (17-59) H D 08/11/18 16:39 ALT 53 U/L (21-72) 08/11/18 16:39 Alkaline Phosphatase 120 U/L (38-126) 08/11/18 16:39 Total Protein 7.2 g/dL (6.3-8.3) 08/11/18 16:39 Albumin 4.4 g/dL (3.5-5.0) 08/11/18 16:39 Globulin 2.8 gm/dL (2.2-3.9) 08/11/18 16:39 Albumin/Globulin Ratio 1.6 (1.0-2.1) 08/11/18 16:39 ECG: Interpreted By Me, Viewed By Me ECG Rhythm: Sinus Tachycardia Interpretation Of ECG: Sinus Tachycardia with normal intervals, normal axises, and no ST/T wave abnormalities Rate From EC O2 Sat by Pulse Oximetry: 94 (RA) Pulse Ox Interpretation: Normal Medical Decision Making Medical Decision Making: Plan: --Labs --CXR --Aspirin PO --Nitroglycerin SL Updates: 18:40 Case discussed with , last puller covering for . Disposition Discussed With DrOsvaldo: Tatianna Brunner Counseled Patient/Family Regarding: Studies Performed, Diagnosis - Disposition Disposition: HOSPITALIZED Disposition Time: 17:40 Condition: FAIR - Clinical Impression Clinical Impression: Chest pain, ESRD (end stage renal disease) - Scribe Statement The provider has reviewed the documentation as recorded by the Kierra Pinzon Provider Attestation: All medical record entries made by the Melonyibe were at my direction and personally dictated by me. I have reviewed the chart and agree that the record accurately reflects my personal performance of the history, physical exam, medical decision making, and the department course for this patient. I have also personally directed, reviewed, and agree with the discharge instructions and disposition.
[2018-08-11] MEDS ORDERED: Azithromycin 500 MG in Sodium Chloride 0.9% 250 ML IVPB STA (18:39)
[2018-08-11 18:50] LABS: EOSINOPHIL 1 % (0-4); LYMPHOCYTE 6 % (20-40); MONOCYTE 3 % (0-10); NEUTROPHIL 89 % (50-75); PLATELET ESTIMATE NORMAL (NORMAL); REACTIVE LYMPHOCYTES 1 % (0-0); TOTAL CELLS COUNTED 100
--- NOTE | 2018-08-11 19:43 | CP.PCM.HP ---
History of Present Illness - History of Present Illness History of Present Illness: 32 y/o male,w/PMhx of ESRD, brought to ER by ambulance for evaluation of chest pain and shortness of breath which began in the morning today. Patient states that the pain is located in the center of the chest and the pain is non-radiat ing. Patient reports that he is due for dialysis today. CXR REPORTED LLL PNEUMONIA Present on Admission - Present on Admission Any Indicators Present on Admission: No Review of Systems - Review of Systems All systems: reviewed and no additional remarkable complaints except (generalized weakness and atypical chest pain) Past Patient History - Past Medical History & Family History Past Medical History?: Yes - Past Social History Smoking Status: Heavy Smoker > 10 Cigarettes Daily - CARDIAC Hx Hypertension: Yes - PULMONARY Hx Asthma: Yes - NEUROLOGICAL Other/Comment: neuro genic bladder - RENAL Hx Chronic Kidney Disease: Yes - MUSCULOSKELETAL/RHEUMATOLOGICAL Hx Falls: No - PSYCHIATRIC Hx Substance Use: No - SURGICAL HISTORY Other/Comment: abdominal sx, colostomy R abdomen, A/V fistula - ANESTHESIA Hx Anesthesia: Yes Hx Anesthesia Reactions: No Meds Allergies/Adverse Reactions: Allergies Allergy/AdvReac Type Severity Reaction Status Date / Time codeine Allergy Verified 08/11/18 15:57 latex Allergy Verified 08/11/18 15:57 monoxidill Allergy Uncoded 08/11/18 15:57 Physical Exam - Head Exam Head Exam: ATRAUMATIC, NORMAL INSPECTION, NORMOCEPHALIC - Eye Exam Eye Exam: EOMI, Normal appearance, PERRL - ENT Exam ENT Exam: Mucous Membranes Moist, Normal Exam - Neck Exam Neck exam: Positive for: Normal Inspection - Respiratory Exam Respiratory Exam: Clear to Auscultation Bilateral, NORMAL BREATHING PATTERN - Cardiovascular Exam Cardiovascular Exam: +S1, +S2, +S4, Systolic Murmur - GI/Abdominal Exam GI & Abdominal Exam: Normal Bowel Sounds, Soft. absent: Tenderness - Extremities Exam Extremities exam: Positive for: full ROM (left arm AV shunt) Results - Vital Signs Recent Vital Signs: Last Vital Signs Temp Pulse 106 H 08/11/18 19:22 Resp 20 08/11/18 19:22 BP 169/116 H 08/11/18 19:22 Pulse Ox 99 08/11/18 19:22 - Labs Result Diagrams: 08/11/18 16:39 08/11/18 16:39 Labs: Laboratory Results - last 24 hr 08/11/18 08/11/18 08/11/18 16:39 16:39 16:39 WBC 9.6 D RBC 4.09 L Hgb 11.8 L D Hct 36.8 MCV 90.0 MCH 28.9 MCHC 32.1 L RDW 15.9 H Plt Count 158 MPV 7.4 Neut % (Auto) 84.5 H Lymph % (Auto) 7.8 L [place] % (Auto) 5.0 Eos % (Auto) 1.7 Baso % (Auto) 1.0 Neut # (Auto) 8.1 H Lymph # (Auto) 0.7 L [place] # (Auto) 0.5 Eos # (Auto) 0.2 Baso # (Auto) 0.1 Neutrophils % (Manual) 89 H Lymphocytes % (Manual) 6 L Reactive Lymphs % 1 H Monocytes % (Manual) 3 Eosinophils % (Manual) 1 Platelet Estimate Normal PT 11.2 INR 1.0 APTT 35 H Sodium 145 Potassium 4.9 Chloride 103 Carbon Dioxide 27 Anion Gap 20 BUN 78 H Creatinine 12.4 H* Est GFR ( Amer) 6 Est GFR (Non-Af Amer) 5 Random Glucose 89 Calcium 10.0 Total Bilirubin 1.0 AST 130 H D ALT 53 Alkaline Phosphatase 120 Troponin I 0.0300 NT-Pro-B Natriuret Pep 80697 H Total Protein 7.2 Albumin 4.4 Globulin 2.8 Albumin/Globulin Ratio 1.6 Assessment & Plan (1) Chest pain Status: Acute (2) ESRD (end stage renal disease) Status: Chronic (3) LLL pneumonia Status: Acute
[2018-08-11] MEDS ORDERED: Metoprolol 1 mg/ml Inj IVP ONE ×2 (21:29→22:47)
[2018-08-11] MEDS ORDERED: Nitroglycerin 2% Ointment Foilpak UD TOP ONE (23:58)
--- NOTE | 2018-08-11 23:59 | CP.PCM.CON ---
History of Present Illness - History of Present Illness History of Present Illness: 32 y/o male with PMhx of ESRD, asthma,HTN ,VATER syndrome with Colostomy brought to ER by ambulance for evaluation of chest pain and shortness of breath which began in the morning today. Patient states that the pain is located in the c enter and right side of the chest and the pain is non-radiating. Patient reports that he was due for dialysis 08/11 but did not get HD due to chest pain. Denies cough. ICU consult requested for high BP,improved to 141/96mmhg with meds Review of Systems - Constitutional Constitutional: absent: Anorexia, Chills - EENT Eyes: absent: Change in Vision Ears: absent: Ear Pain Nose/Mouth/Throat: absent: Nasal Congestion, Sore Throat - Cardiovascular Cardiovascular: Chest Pain. absent: Leg Edema, Palpitations - Respiratory Respiratory: absent: Cough, Hemoptysis - Gastrointestinal Gastrointestinal: absent: Abdominal Pain, Nausea, Vomiting - Integumentary Integumentary: absent: Rash - Neurological Neurological: absent: Dizziness Past Patient History - Past Medical History & Family History Past Medical History?: Yes - Past Social History Smoking Status: Heavy Smoker > 10 Cigarettes Daily - CARDIAC Hx Hypertension: Yes - PULMONARY Hx Asthma: Yes - NEUROLOGICAL Other/Comment: neuro genic bladder - RENAL Hx Chronic Kidney Disease: Yes - MUSCULOSKELETAL/RHEUMATOLOGICAL Hx Falls: No - PSYCHIATRIC Hx Substance Use: No - SURGICAL HISTORY Other/Comment: abdominal sx, colostomy R abdomen, A/V fistula - ANESTHESIA Hx Anesthesia: Yes Hx Anesthesia Reactions: No Meds Allergies/Adverse Reactions: Allergies Allergy/AdvReac Type Severity Reaction Status Date / Time codeine Allergy Verified 08/11/18 15:57 latex Allergy Verified 08/11/18 15:57 monoxidill Allergy Uncoded 08/11/18 15:57 - Medications Medications: Current Medications Calcium Acetate (Phoslo) 2,668 mg PO TID [facility] Clonidine HCl (Catapres) 0.1 mg PO DAILY [facility] Gabapentin (Neurontin) 100 mg PO TID [facility] Home Med (B Complex W-C No.20/Folic Acid [Nephrocaps Softgel]) 1 mg PO DAILY [facility] Home Med (Cinacalcet [Sensipar]) 60 mg PO DAILY [facility] Trazodone HCl (Desyrel) 50 mg PO HS [facility] Last Admin: 08/11/18 22:45 Dose: 50 mg Physical Exam - Constitutional Appears: No Acute Distress - Head Exam Head Exam: ATRAUMATIC, NORMAL INSPECTION, NORMOCEPHALIC - Eye Exam Eye Exam: EOMI, PERRL - ENT Exam ENT Exam: Mucous Membranes Moist - Neck Exam Neck exam: Positive for: Normal Inspection - Respiratory Exam Respiratory Exam: Clear to Auscultation Bilateral (decreased air entry in bases) - Cardiovascular Exam Cardiovascular Exam: REGULAR RHYTHM. absent: JVD - GI/Abdominal Exam GI & Abdominal Exam: Normal Bowel Sounds, Soft. absent: Tenderness (colostomy +) - Extremities Exam Extremities exam: Positive for: normal inspection. Negative for: pedal edema - Neurological Exam Neurological exam: Alert, Oriented x3 - Psychiatric Exam Psychiatric exam: Normal Affect - Skin Skin Exam: Normal Color Results - Vital Signs Recent Vital Signs: Last Vital Signs Temp Pulse 101 H 08/11/18 23:33 Resp 17 08/11/18 23:33 BP 141/96 H 08/11/18 23:33 Pulse Ox 96 08/11/18 23:33 - Labs Result Diagrams: 08/11/18 16:39 08/11/18 16:39 Labs: Laboratory Results - last 24 hr 08/11/18 08/11/18 08/11/18 16:39 16:39 16:39 WBC 9.6 D RBC 4.09 L Hgb 11.8 L D Hct 36.8 MCV 90.0 MCH 28.9 MCHC 32.1 L RDW 15.9 H Plt Count 158 MPV 7.4 Neut % (Auto) 84.5 H Lymph % (Auto) 7.8 L [place] % (Auto) 5.0 Eos % (Auto) 1.7 Baso % (Auto) 1.0 Neut # (Auto) 8.1 H Lymph # (Auto) 0.7 L [place] # (Auto) 0.5 Eos # (Auto) 0.2 Baso # (Auto) 0.1 Neutrophils % (Manual) 89 H Lymphocytes % (Manual) 6 L Reactive Lymphs % 1 H Monocytes % (Manual) 3 Eosinophils % (Manual) 1 Platelet Estimate Normal PT 11.2 INR 1.0 APTT 35 H Sodium 145 Potassium 4.9 Chloride 103 Carbon Dioxide 27 Anion Gap 20 BUN 78 H Creatinine 12.4 H* Est GFR ( Amer) 6 Est GFR (Non-Af Amer) 5 Random Glucose 89 Calcium 10.0 Total Bilirubin 1.0 AST 130 H D ALT 53 Alkaline Phosphatase 120 Troponin I 0.0300 NT-Pro-B Natriuret Pep 33874 H Total Protein 7.2 Albumin 4.4 Globulin 2.8 Albumin/Globulin Ratio 1.6 - EKG Data Rate: Tachycardia - Imaging and Cardiology Chest x-ray Status: Image reviewed by me, Report reviewed by me Assessment & Plan - Assessment and Plan (Free Text) Assessment: 1.HTN-improved with meds in ER continue BP meds HD 2.Chest pain/Pneumonia on antibitics Initial troponin WNL.rpt labs pending 3.anemia 4.ESRD on HD will need HD as patient missed HD on 5.Increased AST 6.VATER syndrome/Colosttomy ICU evaluation requested for elevated BP,improved.will not transfer to ICU at present time.Reconsult if necessary
[2018-08-12 01:25] LABS: CK-MB 2.18 ng/mL (0.0-3.38); TROPONIN I 0.033 ng/mL (0.00-0.120)
--- NOTE | 2018-08-12 09:13 | RAD ---
HISTORY: chest pain COMPARISON: Chest xray performed 08/11/18 TECHNIQUE: Chest, one view. FINDINGS: LUNGS: Moderate pulmonary venous congestion. PLEURA: No significant pleural effusion identified. No definite pneumothorax . CARDIOVASCULAR: Cardiomegaly. No significant atherosclerotic calcification present. OSSEOUS STRUCTURES: No acute osseous abnormality identified. VISUALIZED UPPER ABDOMEN: Unremarkable. OTHER FINDINGS: None. IMPRESSION: Moderate pulmonary venous congestion and cardiomegaly.
--- NOTE | 2018-08-12 10:16 | CP.PCM.PN ---
Subjective - Date & Time of Evaluation Date of Evaluation: 08/12/18 Time of Evaluation: 10:14 - Subjective Subjective: LAST PM PT HAS SOB , CXR THIS AM SHOWS PULM. CONGESTION SEC TO DIASTOLIC HF SEC TO HTN BP STABLE NEED DIALYSIS [place] ID EVAL IF THERE IS PNEUMONIA Objective - Vital Signs/Intake and Output Vital Signs (last 24 hours): Temp Pulse Resp BP Pulse Ox 98.7 F 98 H 20 143/88 93 L 08/12/18 07:48 08/12/18 07:48 08/12/18 07:48 08/12/18 07:48 08/12/18 07:48 - Medications Medications: Current Medications Calcium Acetate (Phoslo) 2,668 mg PO TIDCC [facility] Last Admin: 08/12/18 08:49 Dose: 2,668 mg Cinacalcet (Sensipar) 60 mg PO DAILY [facility] Clonidine HCl (Catapres) 0.1 mg PO DAILY [facility] Gabapentin (Neurontin) 100 mg PO TID [facility] Heparin Sodium (Porcine) (Heparin) 5,000 units SC Q12 [facility] Trazodone HCl (Desyrel) 50 mg PO HS [facility] Last Admin: 08/11/18 22:45 Dose: 50 mg Vitamin B Complex/Vit C/Folic Acid (Nephro-Radha) 1 tab PO DAILY [facility] - Labs Labs: 08/11/18 16:39 08/11/18 16:39 PT 11.2 SECONDS (9.7-12.2) 08/11/18 16:39 INR 1.0 08/11/18 16:39 APTT 35 SECONDS (21-34) H 08/11/18 16:39 Assessment and Plan (1) Chest pain Status: Acute (2) ESRD (end stage renal disease) Status: Chronic (3) LLL pneumonia Status: Acute
[2018-08-12] MEDS: Multivitamin Vitamin B Complex (Nephro-Vite) Tab PO SCH (10:44)
--- NOTE | 2018-08-12 11:25 | CP.PCM.CON ---
History of Present Illness - History of Present Illness History of Present Illness: INFECTIOUS DISEASE CONSULT; HPI; 32 y/o male with PMhx of ESRD ON HD TTS, asthma,HTN ,VATER syndrome with Colostomy brought to ER by ambulance for evaluation of chest pain and shortness of breath which began in the morning of 08/11/18 . Patient states that the pain is located in the center and right side of the chest and the pain is non- radiating. Patient reports that he was due for dialysis 08/11 but did not get HD due to chest pain. Patient complaining of cough but no expectoration and complains of pleuritic type of chest pain. Patient also has generalized anasarca and proBNP is 36,300. Chest x-ray on admission showed moderate venous congestion and cardiomegaly. Chest x-ray today repeated 08/12/18 showed patchy left lower lobe opacities with linear atelectasis right lung base consistent with pneumonia Infectious disease consultation requested by PMD for pneumonia /chest pain. Patient seen today on hemodialysis. Patient denies any recent sick contacts or travel history. Patient up-to-date on his immunization. 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 chronic neurogenic bladder which he was managing with self catheterization. he had CKD and started hemodialysis 7 years ago. nowadays anuric Family History: States: Unknown Family Hx - Social History LIVES WITH MOTHER/BROTHER Hx Alcohol Use: No. SMOKES 1/2 PPD Hx Substance Use: No - Immunization History Hx Tetanus Toxoid Vaccination: Yes Hx Influenza Vaccination: Yes Hx Pneumococcal Vaccination: Yes Review of Systems - Constitutional Constitutional: absent: Chills, Fever - EENT Eyes: absent: Change in Vision Nose/Mouth/Throat: absent: Dry Mouth, Mouth Lesions - Cardiovascular Cardiovascular: Chest Pain, Dyspnea, Edema, Leg Edema - Respiratory Respiratory: Cough (DRY). absent: Hemoptysis - Gastrointestinal Gastrointestinal: absent: Abdominal Pain (POSITIVE COLOSTOMY), Constipation, Diarrhea, Nausea, Vomiting - Neurological Neurological: As Per HPI. absent: Dizziness, Headaches - Hematologic/Lymphatic Hematologic: As Per HPI. absent: Easy Bleeding, Easy Bruising, Lymphadenopathy Past Patient History - Past Medical History & Family History Past Medical History?: Yes - Past Social History Smoking Status: Heavy Smoker > 10 Cigarettes Daily - CARDIAC Hx Hypertension: Yes - PULMONARY Hx Asthma: Yes - NEUROLOGICAL Other/Comment: neuro genic bladder - RENAL Hx Chronic Kidney Disease: Yes - MUSCULOSKELETAL/RHEUMATOLOGICAL Hx Falls: No - PSYCHIATRIC Hx Substance Use: No - SURGICAL HISTORY Other/Comment: abdominal sx, colostomy R abdomen, A/V fistula - ANESTHESIA Hx Anesthesia: Yes Hx Anesthesia Reactions: No Meds Allergies/Adverse Reactions: Allergies Allergy/AdvReac Type Severity Reaction Status Date / Time codeine Allergy Verified 08/11/18 15:57 latex Allergy Verified 08/11/18 15:57 monoxidill Allergy Uncoded 08/11/18 15:57 - Medications Medications: Current Medications Calcium Acetate (Phoslo) 2,668 mg PO TIDCC [facility] Last Admin: 08/12/18 08:49 Dose: 2,668 mg Cinacalcet (Sensipar) 60 mg PO DAILY [facility] Last Admin: 08/12/18 10:47 Dose: Not Given Clonidine HCl (Catapres) 0.1 mg PO DAILY [facility] Last Admin: 08/12/18 10:44 Dose: 0.1 mg Gabapentin (Neurontin) 100 mg PO TID [facility] Last Admin: 08/12/18 10:44 Dose: 100 mg Heparin Sodium (Porcine) (Heparin) 5,000 units SC Q12 [facility] Last Admin: 08/12/18 10:48 Dose: Not Given Trazodone HCl (Desyrel) 50 mg PO HS [facility] Last Admin: 08/11/18 22:45 Dose: 50 mg Vitamin B Complex/Vit C/Folic Acid (Nephro-Radha) 1 tab PO DAILY [facility] Last Admin: 08/12/18 10:44 Dose: 1 tab Results - Vital Signs Recent Vital Signs: Last Vital Signs Temp 98.7 F 08/12/18 07:48 Pulse 98 H 08/12/18 08:30 Resp 20 08/12/18 07:48 BP 143/88 08/12/18 07:48 Pulse Ox 93 L 08/12/18 07:48 - Labs Result Diagrams: 08/11/18 16:39 08/11/18 16:39 Labs: Laboratory Results - last 24 hr 08/11/18 08/11/18 08/11/18 16:39 16:39 16:39 WBC 9.6 D RBC 4.09 L Hgb 11.8 L D Hct 36.8 MCV 90.0 MCH 28.9 MCHC 32.1 L RDW 15.9 H Plt Count 158 MPV 7.4 Neut % (Auto) 84.5 H Lymph % (Auto) 7.8 L [place] % (Auto) 5.0 Eos % (Auto) 1.7 Baso % (Auto) 1.0 Neut # (Auto) 8.1 H Lymph # (Auto) 0.7 L [place] # (Auto) 0.5 Eos # (Auto) 0.2 Baso # (Auto) 0.1 Neutrophils % (Manual) 89 H Lymphocytes % (Manual) 6 L Reactive Lymphs % 1 H Monocytes % (Manual) 3 Eosinophils % (Manual) 1 Platelet Estimate Normal PT 11.2 INR 1.0 APTT 35 H Sodium 145 Potassium 4.9 Chloride 103 Carbon Dioxide 27 Anion Gap 20 BUN 78 H Creatinine 12.4 H* Est GFR ( Amer) 6 Est GFR (Non-Af Amer) 5 Random Glucose 89 Calcium 10.0 Total Bilirubin 1.0 AST 130 H D ALT 53 Alkaline Phosphatase 120 Total Creatine Kinase CK-MB (Mass) Troponin I 0.0300 NT-Pro-B Natriuret Pep 10025 H Total Protein 7.2 Albumin 4.4 Globulin 2.8 Albumin/Globulin Ratio 1.6 08/12/18 00:56 WBC RBC Hgb Hct MCV MCH MCHC RDW Plt Count MPV Neut % (Auto) Lymph % (Auto) [place] % (Auto) Eos % (Auto) Baso % (Auto) Neut # (Auto) Lymph # (Auto) [place] # (Auto) Eos # (Auto) Baso # (Auto) Neutrophils % (Manual) Lymphocytes % (Manual) Reactive Lymphs % Monocytes % (Manual) Eosinophils % (Manual) Platelet Estimate PT INR APTT Sodium Potassium Chloride Carbon Dioxide Anion Gap BUN Creatinine Est GFR ( Amer) Est GFR (Non-Af Amer) Random Glucose Calcium Total Bilirubin AST ALT Alkaline Phosphatase Total Creatine Kinase 7116 H CK-MB (Mass) 2.18 Troponin I 0.0330 NT-Pro-B Natriuret Pep Total Protein Albumin Globulin Albumin/Globulin Ratio - Imaging and Cardiology Chest x-ray Status: Report reviewed by me (08/12/18 PATCHY LEFT LOWER LOBE INFILTRATE.ATELECTASIS RIGHT LUNG BASE/PNEUMONIA.) Assessment & Plan (1) Chest pain Status: Acute (2) LLL pneumonia Status: Acute (3) ESRD (end stage renal disease) on dialysis Status: Acute - Assessment and Plan (Free Text) Plan: PANCULTURES ESR CRP MRSA SCREEN. ATYPICAL TITERS-mYCOPLASMA IGM ANTIBODY. CONTINUE iv rOCEPHIN 1 G DAILY DAILY 08/11/18 ADD IV zITHROMAX 500 MG ONCE A DAY DAILY. F/U CULTURES TO ADJUST ANTIBIOTICS. wILL FOLLOW ALONG WITH YOU AND MAKE FURTHER RECOMMENDATIONS NEEDED.
[2018-08-12 11:55] LABS: CK-MB 2.7 ng/mL (0.0-3.38); TROPONIN I 0.019 ng/mL (0.00-0.120)
--- NOTE | 2018-08-12 14:23 | CP.PCM.CON ---
History of Present Illness - History of Present Illness History of Present Illness: Nephrology Consultation Note: Assessment: critical Pulmonary congestion and fluid overload with HTN urgency End stage renal disease (N18.6) dependence on hemodialysis (Z99.2) (TTS) via AVF Anemia (D64.9), Hyperphosphatemia (E83.39), Secondary Hyperparathyroidism (E21.1), HTN (I12.0) hx of VATER syndrome Plan: Will plan for HD today and tomorrow TTS as ordered. Continue with Nephrovite 1 tab/day. PRBC as needed for anemia. not on LATASHA as epogen with HD, last Hb 11.8 Continue with phos binders home dose Continue with sensipar BP controlled without meds as ordered. Glycemic control, Dialysis consistent diet Further work up/management as per primary team Dose meds/antibiotics (if needed) for ESRD status. Avoid fleets enema/magnesium based laxatives. Thanks for allowing me to participate in care of your patient. Will follow patient with you. Please call if any Qs. had d/w team Dr Son Carrillo Office: [phone] Chief Complaint; SOB, chest pain HPI: Pt is a 32 M with hx of ESRD on hemodialysis (TTS) via AVF, last dialysis Wednesday, chronic anemia, hyperphosphatemia, secondary hyperparathyroidism, VATER syndrome presented with complaints of chest pain, and SOB. renal consult for ESRD management he feels excess fluid and c/o mild leg swelling. he is anuric now. reports SOB but better with BiPAP. 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 chronic neurogenic bladder which he was managing with self catheterization. he had CKD and started hemodialysis 7 years ago. nowadays anuric EDW 49 kgs, now wt 58 kgs ROS: Cardiovascular: No chest pain. Pulmonary: c/o shortness of breath Gastrointestinal: denies abdominal pain No nausea. No vomiting. Genitourinary: anuric All other negative except as mentioned in HPI Physical Examination: General Appearance: Comfortable, in no acute respiratory distress, co-operative . on BiPAP Vitals reviewed and noted as below Head; Atraumatic, normocephalic ENT: no ulcers no thrush. Tongue is midline. Oropharynx: no rash or ulcers. facial puffiness notes EYES: Pupils are equal, round and reactive to light accommodation. Eye muscles and extraocular movement intact. Sclera is anicteric. Neck; supple no lymphadenopathy, no thyromegaly or bruit Lungs: Normal respiratory rate/effort. Breath sounds bilateral reduced at dimas Heart: Normal rate. s1s2 normal. No rub or gallop. Extremities: no edema. No varicose veins Neurological: Patient is alert, awake and oriented to person, place and time. No focal deficit. Strength bilateral appropriate and equal Skin: Warm and dry. Normal turgor. No rash. Palpitation: Normal elasticity for age Abdomen: Abdomen is soft. Bowel sounds +. There is no abdominal tenderness, no guarding/rigidity or organomegaly. has RLQ colostomy Psych: normal insight and normal affect/mood MSK: no joint tenderness or swelling. Digits and nails normal, no deformity : kidney or bladder not palpable Access: left AVF Labs/imaging reviewed. Past medical history, past surgical history, family history, social history, allergy reviewed and noted as below Family Hx: no hx of CKD. Non contributory Past Patient History - Past Medical History & Family History Past Medical History?: Yes - Past Social History Smoking Status: Heavy Smoker > 10 Cigarettes Daily - CARDIAC Hx Hypertension: Yes - PULMONARY Hx Asthma: Yes - NEUROLOGICAL Other/Comment: neuro genic bladder - RENAL Hx Chronic Kidney Disease: Yes - MUSCULOSKELETAL/RHEUMATOLOGICAL Hx Falls: No - PSYCHIATRIC Hx Substance Use: No - SURGICAL HISTORY Other/Comment: abdominal sx, colostomy R abdomen, A/V fistula - ANESTHESIA Hx Anesthesia: Yes Hx Anesthesia Reactions: No Meds Allergies/Adverse Reactions: Allergies Allergy/AdvReac Type Severity Reaction Status Date / Time codeine Allergy Verified 08/11/18 15:57 latex Allergy Verified 08/11/18 15:57 monoxidill Allergy Uncoded 08/11/18 15:57 - Medications Medications: Current Medications Calcium Acetate (Phoslo) 2,668 mg PO TIDCC [facility] Last Admin: 08/12/18 12:51 Dose: 2,668 mg Cinacalcet (Sensipar) 60 mg PO DAILY [facility] Last Admin: 08/12/18 10:47 Dose: Not Given Clonidine HCl (Catapres) 0.1 mg PO DAILY [facility] Last Admin: 08/12/18 10:44 Dose: 0.1 mg Gabapentin (Neurontin) 100 mg PO TID [facility] Last Admin: 08/12/18 13:01 Dose: 100 mg Heparin Sodium (Porcine) (Heparin) 5,000 units SC Q12 [facility] Last Admin: 08/12/18 10:48 Dose: Not Given Ceftriaxone Sodium (Rocephin Iv 1 Gm Duplex) 50 mls @ 100 mls/hr IVPB [facility] Y@1800 [facility]; Protocol Azithromycin 500 mg/ Sodium (Chloride) 250 mls @ 250 mls/hr IVPB Q24H [facility]; Pro tocol Trazodone HCl (Desyrel) 50 mg PO HS [facility] Last Admin: 08/11/18 22:45 Dose: 50 mg Vitamin B Complex/Vit C/Folic Acid (Nephro-Radha) 1 tab PO DAILY [facility] Last Admin: 08/12/18 10:44 Dose: 1 tab Results - Vital Signs Recent Vital Signs: Last Vital Signs Temp 98.7 F 08/12/18 07:48 Pulse 98 H 08/12/18 12:00 Resp 20 08/12/18 07:48 BP 143/88 08/12/18 07:48 Pulse Ox 93 L 08/12/18 13:00 - Labs Result Diagrams: 08/11/18 16:39 08/11/18 16:39 Labs: Laboratory Results - last 24 hr 08/11/18 08/11/18 08/11/18 16:39 16:39 16:39 WBC 9.6 D RBC 4.09 L Hgb 11.8 L D Hct 36.8 MCV 90.0 MCH 28.9 MCHC 32.1 L RDW 15.9 H Plt Count 158 MPV 7.4 Neut % (Auto) 84.5 H Lymph % (Auto) 7.8 L [place] % (Auto) 5.0 Eos % (Auto) 1.7 Baso % (Auto) 1.0 Neut # (Auto) 8.1 H Lymph # (Auto) 0.7 L [place] # (Auto) 0.5 Eos # (Auto) 0.2 Baso # (Auto) 0.1 Neutrophils % (Manual) 89 H Lymphocytes % (Manual) 6 L Reactive Lymphs % 1 H Monocytes % (Manual) 3 Eosinophils % (Manual) 1 Platelet Estimate Normal PT 11.2 INR 1.0 APTT 35 H Sodium 145 Potassium 4.9 Chloride 103 Carbon Dioxide 27 Anion Gap 20 BUN 78 H Creatinine 12.4 H* Est GFR ( Amer) 6 Est GFR (Non-Af Amer) 5 Random Glucose 89 Calcium 10.0 Total Bilirubin 1.0 AST 130 H D ALT 53 Alkaline Phosphatase 120 Total Creatine Kinase CK-MB (Mass) Troponin I 0.0300 NT-Pro-B Natriuret Pep 77020 H Total Protein 7.2 Albumin 4.4 Globulin 2.8 Albumin/Globulin Ratio 1.6 08/12/18 08/12/18 00:56 11:19 WBC RBC Hgb Hct MCV MCH MCHC RDW Plt Count MPV Neut % (Auto) Lymph % (Auto) [place] % (Auto) Eos % (Auto) Baso % (Auto) Neut # (Auto) Lymph # (Auto) [place] # (Auto) Eos # (Auto) Baso # (Auto) Neutrophils % (Manual) Lymphocytes % (Manual) Reactive Lymphs % Monocytes % (Manual) Eosinophils % (Manual) Platelet Estimate PT INR APTT Sodium Potassium Chloride Carbon Dioxide Anion Gap BUN Creatinine Est GFR ( Amer) Est GFR (Non-Af Amer) Random Glucose Calcium Total Bilirubin AST ALT Alkaline Phosphatase Total Creatine Kinase 7116 H 41132 H CK-MB (Mass) 2.18 2.70 Troponin I 0.0330 0.0190 NT-Pro-B Natriuret Pep Total Protein Albumin Globulin Albumin/Globulin Ratio
[2018-08-12] MEDS: cefTRIAXone IV 1 gm in Dextros 50 ML IVPB SCH (18:40)
[2018-08-12] MEDS: Azithromycin 500 MG in Sodium Chloride 0.9% 250 ML IVPB SCH (21:35)
[2018-08-13 08:13] LABS: BASO % 0.7 % (0.0-2.0); EOS # 0.2 K/uL (0.0-0.7); EOS % 3.1 % (0.0-4.0); HEMOGLOBIN 10.9 g/dL (12.0-18.0); LYMPH # 0.9 K/uL (1.0-4.3); LYMPH % 14.3 % (20.0-40.0); MEAN CELL VOLUME 89.8 fL (80.0-94.0); MEAN CORPUSCULAR HEMOGLOBIN 29.4 pg (27.0-31.0); MEAN CORPUSCULAR HGB CONC 32.8 g/dL (33.0-37.0); MEAN PLATELET VOLUME 7.6 fL (7.2-11.7); MONO # 0.4 K/uL (0.0-0.8); MONO % 6.5 % (0.0-10.0); NEUT % 75.4 % (50.0-75.0); RBC 3.7 Mil/uL (4.40-5.90); RED CELL DISTRIBUTION WIDTH 15.8 % (11.5-14.5); WHITE BLOOD COUNT 6.6 K/uL (4.8-10.8)
[2018-08-13 08:44] LABS: ALB/GLOB RATIO 1.4 (1.0-2.1); ALBUMIN 3.8 g/dL (3.5-5.0); CALCIUM 8.9 mg/dl (8.6-10.4)
--- NOTE | 2018-08-13 09:02 | CARD ---
APPROVED REPORT Date of service: 08/12/2018 EXAM: Two-dimensional and M-mode echocardiogram with Doppler and color Doppler. Other Information Quality : GoodRhythm : INDICATION ICD: 429.3 Cardiomegaly Dyspnea Chest Pain 2D DIMENSIONS IVSd0.8 (0.7-1.1cm)LVDd5.3 (3.9-5.9cm) PWd1.2 (0.7-1.1cm)LA Tisfsz30 (18-58mL) LVDs4.5 (2.5-4.0cm)FS (%) 15.2 % LVEF (%)40.0 (>50%)LVEF (Sommers's)47.03 % IVC0.00 cm M-Mode DIMENSIONS RVDd1.86 (2.1-3.2cm)Left Atrium (MM)3.80 (2.5-4.0cm) IVSd0.85 (0.7-1.1cm)Aortic Root2.37 (2.2-3.7cm) LVDd5.05 (4.0-5.6cm)Aortic Cusp Exc.1.82 (1.5-2.0cm) PWd0.85 (0.7-1.1cm)FS (%) 17 % LVDs4.17 (2.0-3.8cm)TAPSE23.23 cm LVEF (%)42 (>50%) Mitral Valve MV E Qimyjgrg149.0cm/sMV A Hwzzdyxj940.6cm/sE/A ratio0.9 JEVV187.96 cm/s TDI Lateral E' Peak V5.64cm/sMedial E' Peak V8.03cm/sE/Lateral E'27.5 E/Medial E'19.3 Tricuspid Valve TR Peak Drthdvxz256rg/sTR Peak Gr.80hlZuBSDN48agBy <Conclusion> Left ventricle: thickness: normal; size: normal; overall ejection fraction: 40%: diastolic filling pressures: elevated Mitral valve: annulus: normal: leaflets: normal: excursion: normal; no significant trans-mitral gradient: mild incompetence: left atrium: normal Aortic valve: leaflets: normal: excursion: normal; no significant trans-aortic gradient: No significant incompetence: aortic root: normal Right sided Structures: Pulmonary valve: normal; no significant incompetence; Tricuspid valve: normal; moderate incompetence: Intra-cardiac hemodynamics: pulmonary systolic pressures: 64 mmHg; central venous pressures: normal No pericardial effusion
[2018-08-13] MEDS: Multivitamin Vitamin B Complex (Nephro-Vite) Tab PO SCH (10:00)
--- NOTE | 2018-08-13 12:40 | CP.PCM.PN ---
Subjective - Date & Time of Evaluation Date of Evaluation: 08/13/18 Time of Evaluation: 12:39 - Subjective Subjective: AFEBRILE VS BP STABLE ECHO EF 405 LV FILLING PRESSURE INCREASED FLUID OVERLOAD CONT DIALYSIS Objective - Vital Signs/Intake and Output Vital Signs (last 24 hours): Temp Pulse Resp BP Pulse Ox 97.8 F 88 18 148/104 H 98 08/13/18 09:45 08/13/18 09:45 08/13/18 09:45 08/13/18 12:00 08/13/18 09:45 - Medications Medications: Current Medications Acetaminophen (Tylenol 325mg Tab) 650 mg PO Q6 PRN PRN Reason: Headache Last Admin: 08/12/18 20:16 Dose: 650 mg Calcium Acetate (Phoslo) 2,668 mg PO [facility]CC [facility] Last Admin: 08/13/18 08:31 Dose: 2,668 mg Cinacalcet (Sensipar) 60 mg PO DAILY [facility] Last Admin: 08/12/18 10:47 Dose: Not Given Clonidine HCl (Catapres) 0.1 mg PO DAILY [facility] Last Admin: 08/12/18 10:44 Dose: 0.1 mg Gabapentin (Neurontin) 100 mg PO TID [facility] Last Admin: 08/13/18 09:43 Dose: Not Given Heparin Sodium (Porcine) (Heparin) 5,000 units SC Q12 [facility] Last Admin: 08/13/18 09:42 Dose: Not Given Ceftriaxone Sodium (Rocephin Iv 1 Gm Duplex) 50 mls @ 100 mls/hr IVPB DAILY@1800 [facility]; Protocol Last Admin: 08/12/18 18:40 Dose: 100 mls/hr Azithromycin 500 mg/ Sodium (Chloride) 250 mls @ 250 mls/hr IVPB Q24H [facility]; Protocol Last Admin: 08/12/18 21:35 Dose: 250 mls/hr Trazodone HCl (Desyrel) 50 mg PO HS [facility] Last Admin: 08/12/18 21:36 Dose: Not Given Vitamin B Complex/Vit C/Folic Acid (Nephro-Radha) 1 tab PO DAILY [facility] Last Admin: 08/12/18 10:44 Dose: 1 tab - Labs Labs: 08/13/18 08:00 08/13/18 08:00 PT 11.2 SECONDS (9.7-12.2) 08/11/18 16:39 INR 1.0 08/11/18 16:39 APTT 35 SECONDS (21-34) H 08/11/18 16:39 Assessment and Plan (1) Chest pain Status: Acute (2) ESRD (end stage renal disease) Status: Chronic (3) LLL pneumonia Status: Acute
--- NOTE | 2018-08-13 14:32 | CP.PCM.PN ---
Subjective - Date & Time of Evaluation Date of Evaluation: 08/13/18 Time of Evaluation: 14:32 - Subjective Subjective: AFEBRILE , C/O DRY COUGH. CONGESTION CHEST. DENIES CHEST PAIN. LABS ; REVIEWED +VE MRSA NARIS. BLOOD CULTURES -VE TO DATE. LFTS AST 320 ALT 77 ON IV ROCEPHIN/IV ZITHROMAX . Objective - Vital Signs/Intake and Output Vital Signs (last 24 hours): Temp Pulse Resp BP Pulse Ox 97.8 F 73 16 140/94 H 99 08/13/18 13:15 08/13/18 13:15 08/13/18 13:15 08/13/18 13:15 08/13/18 13:15 - Medications Medications: Current Medications Acetaminophen (Tylenol 325mg Tab) 650 mg PO Q6 PRN PRN Reason: Headache Last Admin: 08/12/18 20:16 Dose: 650 mg Calcium Acetate (Phoslo) 2,668 mg PO TIDCC [facility] Last Admin: 08/13/18 14:01 Dose: 2,668 mg Cinacalcet (Sensipar) 60 mg PO DAILY [facility] Last Admin: 08/13/18 10:00 Dose: Not Given Clonidine HCl (Catapres) 0.1 mg PO DAILY [facility] Last Admin: 08/13/18 10:00 Dose: Not Given Gabapentin (Neurontin) 100 mg PO TID [facility] Last Admin: 08/13/18 14:03 Dose: 100 mg Heparin Sodium (Porcine) (Heparin) 5,000 units SC Q12 [facility] Last Admin: 08/13/18 09:42 Dose: Not Given Ceftriaxone Sodium (Rocephin Iv 1 Gm Duplex) 50 mls @ 100 mls/hr IVPB DAILY@1800 [facility]; Protocol Last Admin: 08/12/18 18:40 Dose: 100 mls/hr Azithromycin 500 mg/ Sodium (Chloride) 250 mls @ 250 mls/hr IVPB Q24H [facility]; Protocol Last Admin: 08/12/18 21:35 Dose: 250 mls/hr Trazodone HCl (Desyrel) 50 mg PO HS [facility] Last Admin: 08/12/18 21:36 Dose: Not Given Vitamin B Complex/Vit C/Folic Acid (Nephro-Radha) 1 tab PO DAILY [facility] Last Admin: 08/13/18 10:00 Dose: Not Given - Labs Labs: 08/13/18 08:00 08/13/18 08:00 PT 11.2 SECONDS (9.7-12.2) 08/11/18 16:39 INR 1.0 08/11/18 16:39 APTT 35 SECONDS (21-34) H 08/11/18 16:39 - Constitutional Appears: No Acute Distress - Head Exam Head Exam: NORMAL INSPECTION - Eye Exam Eye Exam: EOMI, PERRL - ENT Exam ENT Exam: Normal Oropharynx - Neck Exam Neck Exam: Normal Inspection - Respiratory Exam Respiratory Exam: Rales, Rhonchi (LEFT SIDE ) - Cardiovascular Exam Cardiovascular Exam: REGULAR RHYTHM, +S1, +S2 - GI/Abdominal Exam GI & Abdominal Exam: Soft, Normal Bowel Sounds (+VE COLOSTOMY.) - Extremities Exam Extremities Exam: Normal Capillary Refill, Pedal Edema (1+). absent: Calf Tenderness - Psychiatric Exam Psychiatric exam: Normal Mood - Skin Skin Exam: Normal Color, Warm Assessment and Plan (1) Chest pain Status: Acute (2) LLL pneumonia Status: Acute (3) ESRD (end stage renal disease) on dialysis Status: Acute (4) Transaminitis Status: Acute - Assessment and Plan (Free Text) Plan: CONTINUE iv ROCEPHIN 1 G DAILY DAILY 08/11/18 DECREASE IV ZITHROMAX 250 MG ONCE A DAY DAILY.08/12/18 F/U CULTURES TO ADJUST ANTIBIOTICS. TRANSAMINITIS ? CONGESTION LUNGS VS DRUGS. MUPIRICON LOCALLY TO [place] BID X 5DAYS
[2018-08-13 16:30] VITALS: RESP 20
[2018-08-13] MEDS: Mupirocin 2% Ointment (NASAL) NAS SCH (17:57)
[2018-08-13] MEDS: cefTRIAXone IV 1 gm in Dextros 50 ML IVPB SCH (17:57)
[2018-08-13] MEDS: Azithromycin 500 MG in Sodium Chloride 0.9% 250 ML IVPB SCH (22:00)
[2018-08-14] MEDS: Multivitamin Vitamin B Complex (Nephro-Vite) Tab PO SCH (09:30)
[2018-08-14] MEDS: Mupirocin 2% Ointment (NASAL) NAS SCH ×2 (09:31→17:50)
--- NOTE | 2018-08-14 13:05 | CP.PCM.PN ---
Subjective - Date & Time of Evaluation Date of Evaluation: 08/14/18 Time of Evaluation: 13:05 - Subjective Subjective: CLINICALLY IMPROVING SMOKING IN BATHROOM CHF RESOLVED CHECK CXR IN AM Objective - Vital Signs/Intake and Output Vital Signs (last 24 hours): Temp Pulse Resp BP Pulse Ox 97.4 F L 88 20 126/86 97 08/14/18 08:30 08/14/18 12:01 08/14/18 08:30 08/14/18 09:28 08/14/18 12:00 - Medications Medications: Current Medications Acetaminophen (Tylenol 325mg Tab) 650 mg PO Q6 PRN PRN Reason: Headache Last Admin: 08/12/18 20:16 Dose: 650 mg Azithromycin (Zithromax) 250 mg PO DAILY [facility]; Protocol Calcium Acetate (Phoslo) 2,668 mg PO TIDCC [facility] Last Admin: 08/14/18 12:27 Dose: 2,668 mg Cinacalcet (Sensipar) 60 mg PO DAILY [facility] Last Admin: 08/14/18 09:29 Dose: 60 mg Clonidine HCl (Catapres) 0.1 mg PO DAILY [facility] Last Admin: 08/14/18 09:30 Dose: 0.1 mg Gabapentin (Neurontin) 100 mg PO TID [facility] Last Admin: 08/14/18 13:04 Dose: 100 mg Heparin Sodium (Porcine) (Heparin) 5,000 units SC Q12 [facility] Last Admin: 08/14/18 09:37 Dose: Not Given Ceftriaxone Sodium (Rocephin Iv 1 Gm Duplex) 50 mls @ 100 mls/hr IVPB DAILY@1800 [facility]; Protocol Last Admin: 08/13/18 17:57 Dose: 100 mls/hr Mupirocin (Bactroban 2% Nasal) 0.5 gm ROXI BID [facility] Last Admin: 08/14/18 09:31 Dose: 0.5 gm Trazodone HCl (Desyrel) 50 mg PO HS [facility] Last Admin: 08/13/18 22:00 Dose: 50 mg Vitamin B Complex/Vit C/Folic Acid (Nephro-Radha) 1 tab PO DAILY [facility] Last Admin: 08/14/18 09:30 Dose: 1 tab - Labs Labs: 08/13/18 08:00 08/13/18 08:00 PT 11.2 SECONDS (9.7-12.2) 08/11/18 16:39 INR 1.0 08/11/18 16:39 APTT 35 SECONDS (21-34) H 08/11/18 16:39 Assessment and Plan (1) Chest pain Status: Acute (2) ESRD (end stage renal disease) Status: Chronic (3) LLL pneumonia Status: Acute
[2018-08-14] MEDS: cefTRIAXone IV 1 gm in Dextros 50 ML IVPB SCH (17:49)
[2018-08-15 08:24] VITALS: TEMP 98; O2SAT 95
[2018-08-15] MEDS ORDERED: Vitamins A & D Oint UD Foilpak TOP SCH (08:45)
--- NOTE | 2018-08-15 09:32 | RAD ---
Date of service: 08/15/2018 HISTORY: F/U PNEUMONIA COMPARISON: 08/12/2018 FINDINGS: LUNGS: Venous congestion.Improved now mild patchy interstitial opacities. PLEURA: No significant pleural effusion identified, no pneumothorax apparent. CARDIOVASCULAR: No aortic atherosclerotic calcification present. Cardiomegaly. Venous congestion. Enlarged ectatic aorta with prominent superior mediastinum. OSSEOUS STRUCTURES: No significant abnormalities. VISUALIZED UPPER ABDOMEN: Normal. OTHER FINDINGS: None. IMPRESSION: Improved now mild patchy interstitial opacities. Cardiomegaly. Venous congestion. Enlarged ectatic aorta with prominent superior mediastinum.
[2018-08-15 09:55] VITALS: BP 146/88
[2018-08-15] MEDS: Mupirocin 2% Ointment (NASAL) NAS SCH (09:56)
[2018-08-15] MEDS: Multivitamin Vitamin B Complex (Nephro-Vite) Tab PO SCH (09:57)
[2018-08-15] MEDS ORDERED: Petrolatum Oint Foilpak (5 gm) TOP SCH (10:30)
--- NOTE | 2018-08-15 11:11 | CP.PCM.PN ---
Subjective - Date & Time of Evaluation Date of Evaluation: 08/15/18 Time of Evaluation: 11:10 - Subjective Subjective: CXR IMPROVED WILL D/C WITH ID FOR DISCHARGE Objective - Vital Signs/Intake and Output Vital Signs (last 24 hours): Temp Pulse Resp BP Pulse Ox 98 F 88 20 146/88 95 08/15/18 08:00 08/15/18 09:55 08/15/18 08:00 08/15/18 09:55 08/15/18 08:00 Intake and Output: 08/14/18 08/15/18 23:59 11:59 Intake Total 700 Balance 700 - Medications Medications: Current Medications Acetaminophen (Tylenol 325mg Tab) 650 mg PO Q6 PRN PRN Reason: Headache Last Admin: 08/12/18 20:16 Dose: 650 mg Azithromycin (Zithromax) 250 mg PO DAILY [facility]; Protocol Last Admin: 08/15/18 10:07 Dose: 250 mg Calcium Acetate (Phoslo) 2,668 mg PO TIDCC [facility] Last Admin: 08/15/18 08:39 Dose: 2,668 mg Cinacalcet (Sensipar) 60 mg PO DAILY [facility] Last Admin: 08/15/18 09:57 Dose: 60 mg Clonidine HCl (Catapres) 0.1 mg PO DAILY [facility] Last Admin: 08/15/18 09:57 Dose: 0.1 mg Emollient Ointment (Vaseline Oint) 0.5 gm TOP Q12H [facility] Gabapentin (Neurontin) 100 mg PO TID [facility] Last Admin: 08/15/18 09:57 Dose: 100 mg Heparin Sodium (Porcine) (Heparin) 5,000 units SC Q12 [facility] Last Admin: 08/15/18 09:58 Dose: Not Given Ceftriaxone Sodium (Rocephin Iv 1 Gm Duplex) 50 mls @ 100 mls/hr IVPB DAILY@1800 [facility]; Protocol Last Admin: 08/14/18 17:49 Dose: 100 mls/hr Mupirocin (Bactroban 2% Nasal) 0.5 gm ROXI BID [facility] Last Admin: 08/15/18 09:56 Dose: 0.5 gm Trazodone HCl (Desyrel) 50 mg PO HS [facility] Last Admin: 08/14/18 21:01 Dose: 50 mg Vitamin B Complex/Vit C/Folic Acid (Nephro-Radha) 1 tab PO DAILY [facility] Last Admin: 08/15/18 09:57 Dose: 1 tab - Labs Labs: 08/13/18 08:00 08/13/18 08:00 PT 11.2 SECONDS (9.7-12.2) 08/11/18 16:39 INR 1.0 08/11/18 16:39 APTT 35 SECONDS (21-34) H 08/11/18 16:39 Assessment and Plan (1) Chest pain Status: Acute (2) ESRD (end stage renal disease) Status: Chronic (3) LLL pneumonia Status: Acute
[2018-08-15 12:09] LABS: BASO # 0.1 K/uL (0.0-0.2); BASO % 0.8 % (0.0-2.0); EOS # 0.4 K/uL (0.0-0.7); EOS % 6.2 % (0.0-4.0); HEMOGLOBIN 10.6 g/dL (12.0-18.0); LYMPH % 14.9 % (20.0-40.0); MEAN CELL VOLUME 89.1 fL (80.0-94.0); MEAN CORPUSCULAR HEMOGLOBIN 28.6 pg (27.0-31.0); MEAN CORPUSCULAR HGB CONC 32.1 g/dL (33.0-37.0); MEAN PLATELET VOLUME 7.6 fL (7.2-11.7); MONO # 0.5 K/uL (0.0-0.8); MONO % 6.7 % (0.0-10.0); NEUT # 4.8 K/uL (1.8-7.0); NEUT % 71.4 % (50.0-75.0); RBC 3.71 Mil/uL (4.40-5.90); RED CELL DISTRIBUTION WIDTH 15.5 % (11.5-14.5); WHITE BLOOD COUNT 6.8 K/uL (4.8-10.8)
[2018-08-15 12:26] LABS: ALB/GLOB RATIO 1.4 (1.0-2.1); ALBUMIN 3.9 g/dL (3.5-5.0); CALCIUM 9.5 mg/dl (8.6-10.4)
--- NOTE | 2018-08-15 13:13 | CP.PCM.PN ---
Subjective - Date & Time of Evaluation Date of Evaluation: 08/15/18 Time of Evaluation: 13:12 - Subjective Subjective: PATIENT SEEN AND EXAMINED AT THE BEDSIDE Objective - Vital Signs/Intake and Output Vital Signs (last 24 hours): Temp Pulse Resp BP Pulse Ox 98 F 88 20 146/88 95 08/15/18 08:00 08/15/18 09:55 08/15/18 08:00 08/15/18 09:55 08/15/18 08:00 Intake and Output: 08/15/18 08/15/18 06:59 18:59 Intake Total 700 Balance 700 - Medications Medications: Current Medications Acetaminophen (Tylenol 325mg Tab) 650 mg PO Q6 PRN PRN Reason: Headache Last Admin: 08/12/18 20:16 Dose: 650 mg Azithromycin (Zithromax) 250 mg PO DAILY [facility] [place]; Protocol Last Admin: 08/15/18 10:07 Dose: 250 mg Calcium Acetate (Phoslo) 2,668 mg PO TIDCC [facility] [place] Last Admin: 08/15/18 12:45 Dose: 2,668 mg Cinacalcet (Sensipar) 60 mg PO DAILY [facility] Last Admin: 08/15/18 09:57 Dose: 60 mg Clonidine HCl (Catapres) 0.1 mg PO DAILY [facility] [place] Last Admin: 08/15/18 09:57 Dose: 0.1 mg Emollient Ointment (Vaseline Oint) 0.5 gm TOP Q12H [facility] [place] Last Admin: 08/15/18 11:38 Dose: 0.5 gm Gabapentin (Neurontin) 100 mg PO TID [facility] [place] Last Admin: 08/15/18 13:09 Dose: 100 mg Heparin Sodium (Porcine) (Heparin) 5,000 units SC Q12 [facility] Last Admin: 08/15/18 09:58 Dose: Not Given Ceftriaxone Sodium (Rocephin Iv 1 Gm Duplex) 50 mls @ 100 mls/hr IVPB DAILY@1800 [facility]; Protocol Last Admin: 08/14/18 17:49 Dose: 100 mls/hr Mupirocin (Bactroban 2% Nasal) 0.5 gm ROXI BID [facility] Last Admin: 08/15/18 09:56 Dose: 0.5 gm Trazodone HCl (Desyrel) 50 mg PO HS [facility] [place] Last Admin: 08/14/18 21:01 Dose: 50 mg Vitamin B Complex/Vit C/Folic Acid (Nephro-Radha) 1 tab PO DAILY [facility] Last Admin: 08/15/18 09:57 Dose: 1 tab - Labs Labs: 08/15/18 12:02 08/15/18 12:02 PT 11.2 SECONDS (9.7-12.2) 08/11/18 16:39 INR 1.0 08/11/18 16:39 APTT 35 SECONDS (21-34) H 08/11/18 16:39 Assessment and Plan - Assessment and Plan (Free Text) Assessment: FOLLOW UP WITH DR SHERIFF IN HIS OFFICE -----CALL FOR APPOINTMENT FOLLOW UP WITH DR ANDRADE IN HER OFFICE ------CALL FOR APPOINTMENT FOLLOW WITH YOUR HEMODIALYSIS SCHEDULE CONTINUE HOME MEDICATION NEW PRESCRIPTION GIVEN ZPAK DIRECTED BACTORBAN TWICE A DAY FOR 4 DAYS ACTIVITY TOLERATED CALL DR SHERIFF OF GO TO THE EMERGENCY ROOM IF SYMPTOM RETURN OR WORSENING
[2018-08-15 13:28] VITALS: PULSE 78
--- NOTE | 2018-08-15 14:14 | CP.PCM.PN ---
Subjective - Date & Time of Evaluation Date of Evaluation: 08/15/18 Time of Evaluation: 14:12 - Subjective Subjective: Nephrology Consultation Note: Assessment: stable Pulmonary congestion and fluid overload with HTN urgency End stage renal disease (N18.6) dependence on hemodialysis (Z99.2) (TTS) via AVF Anemia (D64.9), Hyperphosphatemia (E83.39), Secondary Hyperparathyroidism (E21.1), HTN (I12.0) hx of VATER syndrome exercise induced rhabdomyolysis Plan: Will plan for HDTTS as ordered. Continue with Nephrovite 1 tab/day. PRBC as needed for anemia. not on LATASHA as epogen with HD, last Hb 10.9 Continue with phos binders home dose Continue with sensipar BP controlled without meds as ordered. Glycemic control, Dialysis consistent diet Further work up/management as per primary team Dose meds/antibiotics (if needed) for ESRD status. Avoid fleets enema/magnesium based laxatives. pt was advised to be involved in gradually increase exercise Thanks for allowing me to participate in care of your patient. Will follow patient with you. Please call if any Qs. had d/w team Dr Son Carrilol Office: [phone] Chief Complaint; SOB, chest pain HPI: Pt is a 32 M with hx of ESRD on hemodialysis (TTS) via AVF, last dialysis Wednesday, chronic anemia, hyperphosphatemia, secondary hyperparathyroidism, VATER syndrome presented with complaints of chest pain, and SOB. renal consult for ESRD management he feels excess fluid and c/o mild leg swelling. he is anuric now. reports SOB but better with BiPAP. 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 chronic neurogenic bladder which he was managing with self catheterization. he had CKD and started hemodialysis 7 years ago. nowadays anuric ROS: feels better. no SOB has muscle soreness involved in new physical exercise regimen recently Physical Examination: General Appearance: Comfortable, in no acute respiratory distress, co-operative . Vitals reviewed and noted as below Head; Atraumatic, normocephalic ENT: no ulcers no thrush. Tongue is midline. Oropharynx: no rash or ulcers. facial puffiness notes EYES: Pupils are equal, round and reactive to light accommodation. Eye muscles and extraocular movement intact. Sclera is anicteric. Neck; supple no lymphadenopathy, no thyromegaly or bruit Lungs: Normal respiratory rate/effort. Breath sounds bilateral clear Heart: Normal rate. s1s2 normal. No rub or gallop. Extremities: no edema. No varicose veins Neurological: Patient is alert, awake and oriented to person, place and time. No focal deficit. Strength bilateral appropriate and equal Skin: Warm and dry. Normal turgor. No rash. Palpitation: Normal elasticity for age Abdomen: Abdomen is soft. Bowel sounds +. There is no abdominal tenderness, no guarding/rigidity or organomegaly. has RLQ colostomy Psych: normal insight and normal affect/mood MSK: no joint tenderness or swelling. Digits and nails normal, no deformity : kidney or bladder not palpable Access: left AVF Labs/imaging reviewed. Past medical history, past surgical history, family history, social history, allergy reviewed and noted as below Family Hx: no hx of CKD. Non contributory Objective - Vital Signs/Intake and Output Vital Signs (last 24 hours): Temp Pulse Resp BP Pulse Ox 98 F 78 20 146/88 95 08/15/18 08:00 08/15/18 12:35 08/15/18 08:00 08/15/18 09:55 08/15/18 08:00 Intake and Output: 08/15/18 08/15/18 06:59 18:59 Intake Total 700 Balance 700 - Medications Medications: Current Medications Acetaminophen (Tylenol 325mg Tab) 650 mg PO Q6 PRN PRN Reason: Headache Last Admin: 08/12/18 20:16 Dose: 650 mg Azithromycin (Zithromax) 250 mg PO DAILY [facility]; Protocol Last Admin: 08/15/18 10:07 Dose: 250 mg Calcium Acetate (Phoslo) 2,668 mg PO TIDCC [facility] Last Admin: 08/15/18 12:45 Dose: 2,668 mg Cinacalcet (Sensipar) 60 mg PO DAILY [facility] Last Admin: 08/15/18 09:57 Dose: 60 mg Clonidine HCl (Catapres) 0.1 mg PO DAILY [facility] Last Admin: 08/15/18 09:57 Dose: 0.1 mg Emollient Ointment (Vaseline Oint) 0.5 gm TOP Q12H [facility] Last Admin: 08/15/18 11:38 Dose: 0.5 gm Gabapentin (Neurontin) 100 mg PO TID [facility] Last Admin: 08/15/18 13:09 Dose: 100 mg Heparin Sodium (Porcine) (Heparin) 5,000 units SC Q12 [facility] Last Admin: 08/15/18 09:58 Dose: Not Given Ceftriaxone Sodium (Rocephin Iv 1 Gm Duplex) 50 mls @ 100 mls/hr IVPB DAILY@1800 [facility]; Protocol Last Admin: 08/14/18 17:49 Dose: 100 mls/hr Mupirocin (Bactroban 2% Nasal) 0.5 gm ROXI BID [facility] Last Admin: 08/15/18 09:56 Dose: 0.5 gm Trazodone HCl (Desyrel) 50 mg PO HS [facility] Last Admin: 08/14/18 21:01 Dose: 50 mg Vitamin B Complex/Vit C/Folic Acid (Nephro-Radha) 1 tab PO DAILY [facility] Last Admin: 08/15/18 09:57 Dose: 1 tab - Labs Labs: 08/15/18 12:02 08/15/18 12:02 PT 11.2 SECONDS (9.7-12.2) 08/11/18 16:39 INR 1.0 08/11/18 16:39 APTT 35 SECONDS (21-34) H 08/11/18 16:39
--- NOTE | 2018-08-15 18:32 | CARD ---
APPROVED REPORT Date of service: 08/11/2018 EKG Measurement Heart [id number] CT [id number] <Conclusion> Sinus tachycardia Otherwise normal ECG
== END 2018-08-15 15:24 | disposition home or self-care (01) ==
LOC: C.ER 15:42 → C.9E 17:39 → C.5S 18:33
PROVIDERS: ADMIT Internal Medicine Cardiovascular Disease; ATTEND Internal Medicine Cardiovascular Disease
DX: J18.1 Lobar pneumonia, unspecified organism (principal); I16.0 Hypertensive urgency; I50.30 Unspecified diastolic (congestive) heart failure; I13.2 Hypertensive heart and chronic kidney disease with heart failure and with stage 5 chronic kidney disease, or end stage renal disease; N18.6 End stage renal disease; R07.81 Pleurodynia; D64.9 Anemia, unspecified; M62.82 Rhabdomyolysis; N31.9 Neuromuscular dysfunction of bladder, unspecified; Q42.3 Congenital absence, atresia and stenosis of anus without fistula; Q87.2 Congenital malformation syndromes predominantly involving limbs; E83.39 Other disorders of phosphorus metabolism; N25.81 Secondary hyperparathyroidism of renal origin; J45.909 Unspecified asthma, uncomplicated; F17.210 Nicotine dependence, cigarettes, uncomplicated; Z93.3 Colostomy status; Z87.738 Personal history of other specified (corrected) congenital malformations of digestive system; Z99.2 Dependence on renal dialysis
CPT/HCPCS: 36415; 71045; 80053; 83880; 84484; 85025; 85610; 85651; 85730; 86140; 86738; 87040; 87081; 93005; 93306; 94660; 96365; 96366; 96367; 96375; 96376; 99285; G0257; G0378; J0456; J0696; J1644; J7050